=== PATIENT | female | born 1990 | race Caucasian/White ===

== ENCOUNTER → 2016-09-19 | Outpatient (CLI) | payer OTHER ==
[~2016-09-19] MED LIST: PRENTAB26 PO
[2016-09-19 12:03] LABS: URINE APPEARANCE CLEAR (CLEAR); URINE BILIRUBIN NEG (NEG); URINE COLOR YELLOW; URINE NITRITE NEG (NEG); URINE PH 6.5 (4.5-7.5); URINE SPECIFIC GRAVITY 1.012 (1.000-1.030); UROBILINOGEN NEG (NEG)
[2016-09-19 12:28] LABS: MANUAL MICROSCOPIC REQUIRED? NO; REVIEW REQ? NO
== END | disposition home or self-care (01) ==
LOC: C.LABSPEC 11:28
PROVIDERS: ATTEND Obstetrics & Gynecology
DX: Z34.00 Encounter for supervision of normal first pregnancy, unspecified trimester (principal)

== ENCOUNTER → 2016-09-26 | Outpatient (CLI) | payer OTHER ==
[2016-09-26 11:43] LABS: BASO % 0.6 %; BASO ABS # 0.04 K/uL (0-0.2); COMPLETE YES; EOS % 2.4 %; HEMATOCRIT 38.8 % (37-47); IG% 0.1 %; LYMPH % 27.6 %; LYMPH ABS # 1.96 K/uL (1.2-3.4); MEAN CORPUSCULAR HEMOGLOBIN 31.1 pg (25-34); MEAN CORPUSCULAR HGB CONC 35.3 g/dl (32-36); MEAN PLATELET VOLUME 9.4 fL (7.4-10.4); MONO % 10.3 %; PLATELET COUNT 299 K/uL (130-400); RED BLOOD COUNT 4.41 M/uL (4.2-5.4); WHITE BLOOD COUNT 7.11 K/uL (4.8-10.8)
[2016-09-28 21:57] LABS: CHLAMYDIA TRACH RNA*** NOT DETECTED (NOT DETECTED); GC (NEIS GONORRHOEAE)RNA** NOT DETECTED (NOT DETECTED)
== END | disposition home or self-care (01) ==
LOC: C.LAB1850 10:34
PROVIDERS: ATTEND Obstetrics & Gynecology
DX: Z34.01 Encounter for supervision of normal first pregnancy, first trimester (principal)

== ENCOUNTER → 2016-11-08 | Outpatient (CLI) | payer OTHER ==
[2016-11-08 12:14] LABS: GTGD 50 Grams
== END | disposition home or self-care (01) ==
LOC: C.LAB1850 09:03
PROVIDERS: ATTEND Obstetrics & Gynecology
DX: Z34.00 Encounter for supervision of normal first pregnancy, unspecified trimester (principal)

== ENCOUNTER → 2016-12-14 | Outpatient (CLI) | payer OTHER ==
[2016-12-14 17:41] LABS: URINE APPEARANCE CLEAR (CLEAR); URINE BILIRUBIN NEG (NEG); URINE COLOR YELLOW; URINE EPITHELIAL CELL AUTO >30 /lpf (0-5); URINE NITRITE NEG (NEG); URINE PH 5.5 (4.5-7.5); URINE SPECIFIC GRAVITY 1.018 (1.000-1.030); UROBILINOGEN NEG (NEG)
[2016-12-14 17:48] LABS: MANUAL MICROSCOPIC REQUIRED? NO; REVIEW REQ? NO
== END | disposition home or self-care (01) ==
LOC: C.LAB1850 16:47
PROVIDERS: ATTEND Obstetrics & Gynecology
DX: R39.9 Unspecified symptoms and signs involving the genitourinary system (principal)

== ENCOUNTER → 2017-01-31 | Outpatient (CLI) | payer OTHER ==
[2017-01-31 12:34] LABS: HEMATOCRIT 33.1 % (37-47)
[2017-01-31 13:13] LABS: GTGD 50 Grams
[2017-01-31 14:27] LABS: URINE APPEARANCE CLEAR (CLEAR); URINE BILIRUBIN NEG (NEG); URINE COLOR DK YELLOW; URINE EPITHELIAL CELL AUTO >30 /lpf (0-5); URINE NITRITE NEG (NEG); URINE SPECIFIC GRAVITY 1.023 (1.000-1.030); UROBILINOGEN NEG (NEG)
[2017-01-31 14:31] LABS: MANUAL MICROSCOPIC REQUIRED? NO; REVIEW REQ? NO
== END | disposition home or self-care (01) ==
LOC: C.LAB1850 10:01
PROVIDERS: ATTEND Obstetrics & Gynecology
DX: Z34.02 Encounter for supervision of normal first pregnancy, second trimester (principal)

== ENCOUNTER → 2017-03-22 | Outpatient (CLI) | payer OTHER | END | disposition home or self-care (01) | LOC: C.LABSPEC 17:50 | PROVIDERS: ATTEND Obstetrics & Gynecology | DX: Z34.02 Encounter for supervision of normal first pregnancy, second trimester (principal) ==

== ENCOUNTER 2017-04-06 22:47 | Inpatient (IN) | payer OTHER ==
[~2017-04-06] VITALS: Ht 180.3 cm; Wt 70.0 kg
[2017-04-06] MEDS ORDERED: LACTATED RINGER'S 1000ML 1,000 ML IV PRN (23:08)
[2017-04-06] MEDS ORDERED: LACTATED RINGER'S 1000ML 1,000 ML IV SCH (23:08)
[2017-04-06 23:37] LABS: HEMATOCRIT 35.5 % (37-47); MEAN CORPUSCULAR HEMOGLOBIN 31.8 pg (25-34); MEAN PLATELET VOLUME 9.7 fL (7.4-10.4); PLATELET COUNT 282 K/uL (130-400); WHITE BLOOD COUNT 13.79 K/uL (4.8-10.8)
[2017-04-06] MEDS ORDERED: BUPIVACAINE 0.25% 30 ML VIAL ONE (23:43)
[2017-04-06] MEDS ORDERED: EpHEDrine SULFATE INJ 50 MG/ML AMP ONE (23:43)
[2017-04-06] MEDS ORDERED: FENTANYL CITRATE INJ 50 MCG/1 ML 2 ML VIAL ONE (23:44)
[2017-04-06] MEDS ORDERED: FENTANYL 2MCG/ML ROPIV 1.25MG/ML 100ML BAG EPI ONE (23:44)
[2017-04-07 00:09] LABS: MEAN CORPUSCULAR HGB CONC 34.9 g/dl (32-36)
[2017-04-07] MEDS ORDERED: NALOXONE HCL INJ 1 MG in SODIUM CHLORIDE 0.9% 1000ML 1,000 ML IV PRN (00:22)
[2017-04-07] MEDS ORDERED: LACTATED RINGER'S 1000ML 500 ML IV PRN (00:22)
[2017-04-07] MEDS ORDERED: NALBUPHINE HCL INJ 10 MG/ML AMP IV PRN (00:30)
[2017-04-07] MEDS ORDERED: FENTANYL 2MCG/ML ROPIV 1.25MG/ML 100ML BAG EPI PRN (00:30)
[2017-04-07] MEDS ORDERED: DiphenhydrAMINE HCL 50 MG/ML VIAL IV PRN (00:30)
[2017-04-07] MEDS ORDERED: EpHEDrine SULFATE INJ 50 MG/ML AMP IV PRN (00:30)
[2017-04-07] MEDS ORDERED: NALOXONE HCL INJ 0.4 MG/1 ML VIAL/CARP IV PRN (00:30)
[2017-04-07 00:56] VITALS: Ht 180.3 cm; Wt 70.0 kg
[2017-04-07] MEDS ORDERED: PRENTAB26 PO (01:08)
[2017-04-07] MEDS ORDERED: OXYTOCIN 30 UNITS/500ML NSS IV ONE (03:08)
[2017-04-07] MEDS ORDERED: METHYLERGONOVINE MALEATE 0.2 MG/ML AMP ONE (06:25)
[2017-04-07] MEDS ORDERED: LACTATED RINGER'S 1000ML 1,000 ML IV SCH (06:55)
[2017-04-07] MEDS ORDERED: HYDROCORTISONE ACETATE 25 MG SUPP PR PRN (07:00)
[2017-04-07] MEDS ORDERED: OXYTOCIN 30 UNITS/500ML NSS IV PRN (07:00)
[2017-04-07] MEDS ORDERED: DIPHTHERIA/TETANUS/PERTUSSIS 0.5 ML SYR/VIAL IM. ONE (07:00)
[2017-04-07] MEDS ORDERED: MISOPROSTOL 200 MCG TAB PR SCH (07:00)
[2017-04-07] MEDS ORDERED: SUPERCREAM 0.870 % 15GM JAR EXT PRN (07:00)
[2017-04-07] MEDS ORDERED: ACETAMINOPHEN 325 MG TAB PO PRN (07:00)
[2017-04-07] MEDS ORDERED: BENZOCAINE 20% AER SPR 82.5 GM CAN EXT PRN (07:00)
[2017-04-07] MEDS ORDERED: OXYCODONE/ACETAMINOPHEN 5-325 TAB PO PRN (07:00)
[2017-04-07] MEDS ORDERED: LANOLIN OINT EXT PRN ×2 (07:00)
--- NOTE | 2017-04-07 07:06 | Anesthesia Procedure Note ---
Anesthesia Epidural Removal Nt Date & Time Apr 07, 2017 at 07:05 Vital Signs Pain Intensity: 0.0 Notes Mental Status: alert / awake / arousable, participated in evaluation Nausea / Vomiting: adequately controlled Pain: adequately controlled Airway Patency, RR, SpO2: stable & adequate BP & HR: stable & adequate Hydration State: stable & adequate Neuraxial Anesthesia: was administered Anesthetic Complications: no major complications apparent, pt satisfied with anesthetic care Epidural: removed without complications, with tip intact
--- NOTE | 2017-04-07 07:51 | DELIVERY SUMMARY ---
DATE OF OPERATION: 04/07/2017 COURSE OF CARE: Alfreda is a 26-year-old who was admitted at 38 and 1. She labored normally and I was called to the room at the time that she was reaching [facility]. She was prepped for delivery. Through the next several pushes she was coached and pushed well. She delivered the head of her infant in the LUIS CARLOS position with significant molding. The infant restituted such that the left shoulder was anterior. This delivered with no difficulty followed by the right shoulder and the remainder of the . Vigorous male was placed on the maternal abdomen where the cord was doubly clamped and cut by the father of the baby. The placenta delivered spontaneously and was noted to be intact with a 3-vessel cord. Of note after delivery of the placenta lochia was free flowing and rather heavy. IV Pitocin was started and bimanual massage was unable to sufficiently stem the flow. Therefore 800 mcg of Cytotec were administered rectally, continued bimanual massage. Digital exploration of the lower uterine segment revealed a clot which was able to be swept out and discarded and shortly thereafter the bleeding rapidly improved. The fundus remained firm and lochia became minimal. Of note, while the nurse was attending to the infant and the infant was lifted upwards off the maternal abdomen in order to allow cleaning and rewrapping in a new blanket it was noted that the Diane clamp on the infant's umbilical stump had spontaneously opened and some point and was lying on the maternal abdomen no longer effectively applied to the cord. The cord stump was noted to be freely bleeding and blood did splash upwards onto the father and mother of the infant as well as onto the pillow and the sheets and the patient's gown. A cord clamp was quickly replaced as soon as this was recognized. Infant EBL is estimated at 50-100 cc maximum and an incident report regarding the loose clamp has been filed. At the completion of delivery the fundus is firm, lochia is minimal. The infant remains vigorous and mother and infant are both in good condition at the present time having tolerated delivery well. I attest to the content of the Intraoperative Record and any orders documented therein. Any exception s are noted below.
[2017-04-07] MEDS: FERROUS SULFATE 325 MG TAB PO SCH (08:00)
[2017-04-07] MEDS: DOCUSATE SODIUM 100 MG CAP PO SCH ×2 (08:00→20:47)
[2017-04-07] MEDS: PRENATAL VITAMIN TAB PO SCH (08:00)
--- NOTE | 2017-04-07 08:57 | Discharge Instructions ---
Discharge Instructions Date of Service Apr 07, 2017. Admission Reason for Admission: Normal Labor Discharge Discharge Diagnosis / Problem: after delivery Discharge Goals Goal(s): Routine recovery after delivery Medications Continue Dispensed Medications: supercream, dermaplast, tucks, lansinoh Activity Recommendations Activity Limitations: per Instructions/Follow-up section . Instructions / Follow-Up Instructions / Follow-Up ACTIVITY RECOMMENDATIONS: * Gradual return to full activity over the next 2-3 weeks. * No lifting - nothing heavier than baby over the next 2-3 weeks. * Do not engage in vigorous exercise, sexual activity or sports until cleared by your physician. * Do not drive or operate any motorized equipment until cleared by your physician. * You may shower/bathe daily. MEDICATIONS: For discomfort or pain, you may use Acetaminophen (Tylenol), Ibuprofen (Advil), or Naproxen (Aleve) following the package directions. For constipation you may use Colace following the package directions. BREAST CARE: If you are not breast feeding: * Wear a supportive bra 24 hours a day for one to two weeks. * Avoid stimulating your breasts and nipples as much as possible during the first few weeks after delivery. * When taking a shower, have the warm water hit your back, not breasts. * When your breasts feel full, apply ice packs. Usually three to four times a day helps ease the discomfort. * Take a mild pain medication (Tylenol / Motrin) when you are uncomfortable. If breast feeding: * Use breast milk to lubricate nipples. Lansinoh cream may be used for sore nipples. You do not need to remove cream prior to breast feeding. If using a different brand of cream, check the label for directions regarding removal of cream prior to nursing. * Wear a supportive bra. * If having problems with breasts or breast feeding, call a senior safety management consultant or your health care provider. EPISIOTOMY CARE: After delivery, if you have an episiotomy (stitches), the following steps will ease discomfort and aid healing. * For the first 24 hours after delivery, place ice packs next to your episiotomy to help reduce swelling. * After the first 24 hour-period, sitz baths, either portable or in the tub, are suggested. A shower with a shower arm sprayed over the episiotomy may be comforting. * Shani care should be done after each voiding and bowel movement. Squirt warm water from a plastic bottle over the perineum (region of the body between the anus and urinary opening) and pat dry. * Use Dermoplast to ease discomfort. Shake container. [place] directly over the episiotomy. Place a Tucks on a clean sanitary pad next to your episiotomy. SPECIAL CARE INSTRUCTIONS: When you are discharged from the hospital, it is important for you to follow the instructions listed below: * During the first week at home, you should be able to care for yourself and your baby. In addition, the usual light household activities are encouraged. * Limit your activities to the way you feel. Do not try to clean the house or move furniture. Be sensible. * If you actively engage in sports and have done so up until the time of your delivery, you may resume these activities as soon as you feel able. This may take up to one month or even longer. Use good judgment. * Continue to take your vitamins for at least six weeks after the of your baby. * Your diet need not be limited unless you were on a special diet before your delivery. Breast-feeding mothers need around 2500 calories per day and at least 64-80 ounces of fluid per day (8 to 10 glasses). * You should eat foods from the four major food groups. Crash diets or fad diets are to be avoided. Eating lean meats, fresh fruits and vegetables, low-fat dairy products, high fiber foods and a regular exercise program, will help you get back to your pre- weight without putting your health at risk. * Constipation is sometimes a problem after delivery. Take a mild laxative as needed. If breast feeding, Milk of Magnesia is acceptable to use. You may use a suppository or Fleets enema if no episiotomy. * A daily shower or tub bath is suggested. Be sure to thoroughly and gently dry the perineum. * A bloody vaginal discharge will usually continue until around four weeks post . A small amount of bleeding may continue for as long as six weeks. Vaginal discharge changes from the bright red bleeding after delivery to pink then brownish and finally yellowish-pink before becoming white and disappearing. * Bleeding may increase with activity. Your first period may come in 4-8 weeks. If you are breast feeding, your period may be delayed even longer. * Robinette (sex) can begin whenever both you and your partner feel comfortable and do not have any form of genital infection. It is recommended that you wait at least six weeks for internal and external healing to occur. If you have questions, please talk to your health care practitioner. A condom should be used to prevent infection and . * Foreplay, gentle intercourse and lubrication is very important the first several times to prevent pain. A water-based lubricant such as K-Y jelly or Astroglide may be used. * If you have RH negative blood and your baby is RH positive, you will receive RHOGAM by injection prior to discharge. The nurse will give you a card to keep with you that has the date and place that you received RHOGAM after delivery. * During your care, you had a Rubella screen done to check for the presence of rubella antibodies in your blood. If your test was negative, you will receive a Rubella vaccine prior to discharge. This vaccine may cause a fever, soreness at the injection site and flu-like symptoms. If these symptoms persist, notify your health care practitioner. is not advised for one month after a Rubella vaccine. * Verbalizes understanding of car seat law as reviewed with patient nursing. * Car Seat hand-out given and reviewed with patient by nursing. * Shaken baby information reviewed with patient by nursing. Call you doctor if: * Heavy bleeding (saturating several pads an hour) or passing clots the size of your fist. * A fever >101 degrees F (38.3 degrees C) on two occasions four hours apart and /or chills. * Unusual pain in the pelvic or vaginal areas. * "Baby Blues" lasting longer than two weeks. If you have any questions or concerns, call your health care practitioner at . FOLLOW UP VISIT: * Please call the office at to schedule a 6 week examination. It is important you keep this appointment. It is important for you to make arrangements for either yearly or twice yearly check-ups thereafter. Current Hospital Diet Patient's current hospital diet: Regular OB Diet Discharge Diet Recommended Diet: Regular Diet Pending Studies Studies pending at discharge: no Medical Emergencies . Who to Call and When: Medical Emergencies: If at any time you feel your situation is an emergency, please call 911 immediately. . Non-Emergent Contact Non-Emergency issues call your: Aesthetics Instructor . . "Provider Documentation" section prepared by Ernst Lin. . VTE Core Measure Inpt VTE Proph given/why not?: Treatment not indicated
[2017-04-07] MEDS ORDERED: COUGH DROP (SUGAR FREE) LOZ 24 LOZ/1 BOX ONE (09:21)
[2017-04-07] MEDS: IBUPROFEN 600 MG TAB PO PRN ×3 (09:25→20:48)
[2017-04-07 10:30] VITALS: BP 99/69; PULSE 98; TEMP 37.1
[2017-04-07] MEDS ORDERED: MISOPROSTOL 200 MCG TAB ONE (11:38)
[2017-04-07 12:15] VITALS: BP 119/86; PULSE 109; TEMP 36.5
[2017-04-07 15:30] VITALS: BP 98/68; PULSE 84; TEMP 36.7
[2017-04-07 19:30] VITALS: BP 102/77; PULSE 98; TEMP 36.7
[2017-04-08 01:05] VITALS: BP 99/73; PULSE 84; TEMP 36.6
[2017-04-08] MEDS: IBUPROFEN 600 MG TAB PO PRN ×3 (01:26→18:26)
[2017-04-08 04:10] VITALS: BP 103/69; PULSE 80; TEMP 36.6
[2017-04-08 06:51] LABS: HEMATOCRIT 28.2 % (37-47)
--- NOTE | 2017-04-08 07:26 | Progress Note ---
Subjective Apr 08, 2017. Subjective conversation w/ patient, physical exam Ambulation: ambulating normally Diet Tolerance: Regular Diet Feeding Type: Breast Feeding Objective Vital Signs Date Time Temp Pulse Resp B/P (MAP) Pulse Ox O2 Delivery O2 Flow Rate FiO2 04/08/17 04:10 36.6 80 16 103/69 (80) Room Air 04/08/17 01:05 Room Air 04/08/17 01:05 36.6 84 16 99/73 (82) Room Air 04/07/17 19:30 36.7 98 16 102/77 (85) Room Air 04/07/17 15:30 Room Air 04/07/17 15:30 36.7 84 16 98/68 (78) Room Air 04/07/17 12:15 36.5 109 20 119/86 (97) Room Air 04/07/17 10:30 37.1 98 18 99/69 (79) Room Air 04/07/17 10:30 Room Air Physical Exam General Appearance: WELL-APPEARING, NO APPARENT DISTRESS Fundus: Firm, Non-Tender Extremities: no calf tenderness Laboratory Results Last 24 Hours Test 04/08/17 06:34 Hemoglobin 9.6 g/dL Hematocrit 28.2 % Assessment and Plan Post- Day#: 1 Continue Routine Care: - routine care - doing well
[2017-04-08] MEDS: PRENATAL VITAMIN TAB PO SCH (09:18)
[2017-04-08] MEDS: DOCUSATE SODIUM 100 MG CAP PO SCH ×2 (09:18→19:42)
[2017-04-08] MEDS: FERROUS SULFATE 325 MG TAB PO SCH (09:18)
[2017-04-08 09:31] VITALS: BP 97/68; PULSE 80; TEMP 37; O2SAT 96
[2017-04-08 15:30] VITALS: BP 109/79; PULSE 96; TEMP 37.1
[2017-04-09] VITALS: BP 101/69; PULSE 82; TEMP 36.7; O2SAT 100
[2017-04-09] MEDS: IBUPROFEN 600 MG TAB PO PRN (06:19)
--- NOTE | 2017-04-09 07:14 | Progress Note ---
Subjective Apr 09, 2017. Subjective conversation w/ patient, physical exam, lab review Ambulation: ambulating normally Voiding: no voiding problems Passing Gas: Yes Diet Tolerance: Regular Diet Lochia: Small Feeding Type: Breast Feeding Pain: controlled Objective Vital Signs Date Time Temp Pulse Resp B/P (MAP) Pulse Ox O2 Delivery O2 Flow Rate FiO2 04/09/17 00:00 36.7 82 18 101/69 (80) 100 Room Air 04/09/17 00:00 Room Air 04/08/17 15:30 Room Air 04/08/17 15:30 37.1 96 20 109/79 (89) Room Air 04/08/17 09:31 37.0 80 16 97/68 (78) 96 Room Air 04/08/17 08:00 Room Air Physical Exam General Appearance: WELL-APPEARING, WD/WN, NO APPARENT DISTRESS Abdomen: non tender, soft Fundus: Firm, Non-Tender, Relation to Umbilicus (at u) Extremities: non-tender, normal inspection, no pedal edema Assessment and Plan Post- Day#: 2 Continue Routine Care: Doing well. Plan d/c. Instructions given.
[2017-04-09 07:20] VITALS: BP 100/75; PULSE 83; TEMP 37; O2SAT 98
[2017-04-09] MEDS: DOCUSATE SODIUM 100 MG CAP PO SCH (07:52)
[2017-04-09] MEDS: FERROUS SULFATE 325 MG TAB PO SCH (07:52)
[2017-04-09] MEDS: PRENATAL VITAMIN TAB PO SCH (07:52)
[2017-04-09 11:10] VITALS: BP_DIAS 75; PULSE 83; TEMP 37
== END 2017-04-09 11:25 | disposition home or self-care (01) | DRG 775 ==
LOC: C.OPB 22:47 → C.LD 22:47 → C.OPB 23:10 → C.OBG 04-07 10:10
PROVIDERS: ADMIT Obstetrics & Gynecology; ATTEND Obstetrics & Gynecology
PROC: 10E0XZZ Delivery of Products of Conception, External Approach (ICD-10-PCS; principal; 2017-04-07)
DX: O76 Abnormality in fetal heart rate and rhythm complicating labor and delivery (principal); Z3A.38 38 weeks gestation of pregnancy; Z37.0 Single live birth

== ENCOUNTER → 2017-05-02 | Outpatient (CLI) | payer OTHER ==
[2017-05-02 14:48] LABS: HEMATOCRIT 37.3 % (37-47); MEAN CELL VOLUME 90.8 fL (80-100); MEAN CORPUSCULAR HEMOGLOBIN 29.7 pg (25-34); MEAN CORPUSCULAR HGB CONC 32.7 g/dl (32-36); MEAN PLATELET VOLUME 9.5 fL (7.4-10.4); PLATELET COUNT 338 K/uL (130-400); RED BLOOD COUNT 4.11 M/uL (4.2-5.4); WHITE BLOOD COUNT 7.22 K/uL (4.8-10.8)
== END | disposition home or self-care (01) ==
LOC: C.LAB1850 13:26
PROVIDERS: ATTEND Internal Medicine
DX: D64.9 Anemia, unspecified (principal)

== ENCOUNTER → 2017-06-21 | Outpatient (CLI) | payer OTHER ==
[2017-06-27 15:31] LABS: HERPES SIMPLEX CULT SOURCE GENITAL-VULVA; HERPES SIMPLEX VIRUS CULT NOT ISOLATED (NOT ISOLATED)
== END | disposition home or self-care (01) ==
LOC: C.LABSPEC 13:45
PROVIDERS: ATTEND Physician Assistant
DX: N94.10 Unspecified dyspareunia (principal); N94.9 Unspecified condition associated with female genital organs and menstrual cycle

== ENCOUNTER → 2017-10-09 | Outpatient (CLI) | payer OTHER ==
[2017-10-09 11:57] LABS: HEMATOCRIT 40.2 % (37-47); HEMOGLOBIN 13.4 g/dL (12.0-16.0); MEAN CELL VOLUME 87.8 fL (80-100); MEAN CORPUSCULAR HEMOGLOBIN 29.3 pg (25-34); MEAN CORPUSCULAR HGB CONC 33.3 g/dl (32-36); MEAN PLATELET VOLUME 9.7 fL (7.4-10.4); PLATELET COUNT 334 K/uL (130-400); RED CELL DISTRIBUTION WIDTH CV 12.9 % (11.5-14.5); RED CELL DISTRIBUTION WIDTH SD 41.2 fL (36.4-46.3); WHITE BLOOD COUNT 5.48 K/uL (4.8-10.8)
== END | disposition home or self-care (01) ==
LOC: C.LAB1850 10:47
PROVIDERS: ATTEND Physician Assistant
DX: N92.6 Irregular menstruation, unspecified (principal)

== ENCOUNTER 2025-04-23 08:35 | Inpatient (IN) ==
[2025-04-23] MEDS: OXYTOCIN 30 UNITS/NSS 30 UNITS/500 ML BAG IV PRN (09:25)
[2025-04-23] MEDS ORDERED: METHYLERGONOVINE MALEATE 0.2 MG/ML AMP IM PRN (09:36)
[2025-04-23] MEDS ORDERED: ACETAMINOPHEN 325 MG TAB PO PRN (09:42)
[2025-04-23] MEDS ORDERED: HYDROCORTISONE ACETATE 25 MG SUPP PR PRN (09:42)
[2025-04-23] MEDS ORDERED: OXYTOCIN 30 UNITS/NSS 30 UNITS/500 ML BAG IV PRN (09:42)
--- NOTE | 2025-04-23 09:46 | History & Physical Report ---
Date of Service April 23, 2025 Assessment & Plan (1) Encounter for induction of labor: Plan Admit pt; iv, labs, add pitocin as needed; FHR category I Admission and Anticipated Discharge Date Admission Date: April 23, 2025 History of Present Illness Primary Care Provider: Terrie Baker MD Contractions: Positive Painful: Positive Leaky Fluid: Negative Movement: Present Labs: Rhesus Positive, GBS Negative, Rubella Negative Hx of STDs: Negative Allergies Allergy/AdvReac Type Severity Reaction Status Date / Time cefaclor Allergy Severe RASH Verified 04/16/25 10:06 tramadol Allergy Intermediate DELIRIUM Verified 04/16/25 10:06 trazodone Allergy Intermediate DELIRIUM Verified 04/16/25 10:06 nickel Allergy Mild red, itchy Verified 04/16/25 10:06 with cheap earrings Home Medications Medication Instructions Recorded Confirmed Type azelastine 137 mcg (0.1 %) nasal 2 spray intranasal BID PRN nasal 03/28/24 04/16/25 Rx spray congestion #30 mL fluticasone propionate 50 2 spray intranasal DAILY #16 grams 03/28/24 04/16/25 Rx mcg/actuation nasal spray,suspension ipratropium bromide 21 mcg (0.03 2 spray intranasal TID PRN 03/28/24 04/16/25 Rx %) nasal spray postnasal drip #30 mL sertraline 50 mg tablet 100 mg PO DAILY 03/28/24 04/16/25 History PNV [id number] PO 10/09/24 04/16/25 History [ Gummies] ferrous sulfate 325 mg (65 mg 325 mg PO DAILY 03/04/25 04/16/25 History iron) tablet (Feosol) Patient History Medical History (Updated 04/23/25 @ 10:06 by Leida Doshi RN) Varicella vaccination Anxiety Acne Chronic rhinitis Oral allergy syndrome Food allergy fresh peaches, apples, pitted fruit Classic migraine with aura Anxiety associated with depression Adrenal nodule Under surveillance by endo, non-functioning adrenal incidentaloma- plan for repeat CT 1 year Thyroid nodule Complex ovarian cyst Incomplete August 2023 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 Ruptured lumbar disc Migraine Surgical History History of colonoscopy History of esophagogastroduodenoscopy (EGD) History of wisdom tooth extraction History of placement of ear tubes Status post epidural steroid injection hip and spine History of tonsillectomy Family History Grandmother Diabetes Transplanted liver Mother Michelle thyroiditis, fibrous variant Drug abuse Anxiety Depression Thyroid disease History of PCOS Grandfather Alcohol abuse Hypertension Grandfather Drug abuse Alcohol abuse Father Drug abuse Alcohol abuse Anxiety Unknown Leukemia Sister Drug abuse Aunt Drug abuse Grandfather (Maternal) Myocardial infarction Grandfather (Paternal) Myocardial infarction Other No family history of adverse response to anesthesia Denies family history of Ovarian cancer Prostate cancer Breast cancer Colorectal cancer Uterine cancer Social History (Updated 10/09/24 @ 13:10 by Josselyn Ragland) Smoking Status: Former smoker Second Hand Exposure: No; Do You Dip or Chew Tobacco: No; Hx Alcohol Use: Yes Hx Substance Use: Yes (medical marijuana card (for anxiety/back)) Last Used Substance: Days (ago) Preferred Language: Romansh Communication Ability: Effective Visual Impairment: No Limitations Hearing Ability: Normal Locomotive Pipe Fitter Required: No Beliefs That Will Affect Care: None marital status: Single marital status details: bg Cantu (34) [phone] Current Living Situation: Family and Significant Other Current Living Situation Comment: Lives with Fob and child, cats-fob changing litter current occupational status: employed current occupation: [employer] Feels Safe at Home: Yes Childhood Exposure to Second-Hand Smoke: Yes Dental Care, Regularly: Yes Physical Activity Frequency: 1-2 Times per Week Seatbelt Use: always Sunscreen Use: Yes Assistive Devices: None OB History SOCIAL SERVICE COORDINATOR History No STDs Review of Systems All systems reviewed & are unremarkable except as noted in HPI & below i. Denies fever, chills, sweats ii. Denies SOB, difficulty breathing, chest pain, palpitations, chest pressure iii. Denies breast pain. iv. Denies Dysuria v. Denies headache or changes in vision. Physical Exam Constitutional: WD/WN, vitals as above Respiratory: normal respiratory effort, lungs clear to auscultation Cardiovascular: RRR, no murmur, no edema Gastrointestinal (Abdomen): normal bowel sounds, soft, nontender, no hepatosplenomegaly Skin: no rashes, warm and dry Psychiatric: A+Ox3, euthymic affect Genitourinary: OB Exam Abdomen: + vertex and + regular contractions ([id number]) Manual OB Exam: + cervical dilation (fully dilated with bulging membranes) and + station + 1 OB Exam Monitor Tracing: + external FHT monitor used, + external uterine monitor used, + category II, + normal FHT variability and + variable decelerations (resolved with maternal re-positioning) Results & Data Vital Signs (Past 12 Hours) Vital Signs Pulse BP 04/23/25 09:41 106 H 129/73 Laboratory Results OB Labs: Blood Type O Positive 10/15/24 Antibody Screen NEGATIVE 10/15/24 Hgb 13.6 g/dl (12.0-16.0) 10/15/24 Hct 39.8 % (37.0-47.0) 10/15/24 MCV 90.5 fL (80.0-100.0) 10/15/24 Plt Count 319 K/uL (130-400) 10/15/24 Rubella IgG Antibody Immune (Immune) 10/15/24 Treponema pallidum Ab Negative (Negative) 10/15/24 Hep Bs Antigen Negative (Negative) 10/15/24 Hepatitis C Antibody Negative (Negative) 10/15/24 HIV 1&2 Ab/P24 Ag 4thGn Negative (Negative) 10/15/24 Glucose 1 Hr 50 gm 116 mg/dl (70-130) 11/26/24 Maternal Serum AFP 45.5 ng/mL 11/26/24 OB Optional Labs: Chlamydia trachomatis RNA Not Detected (NotDetected) 10/15/24 Neisseria gonorrhoeae RNA Not Detected (NotDetected) 10/15/24 Thyroid Stimulating Hormone (TSH) 0.06 uIU/mL L 11/08/24 Alpha Fetoprotein Triple Screen SEE NOTE 11/26/24 Code Status & VTE Plan VTE Prophylaxis Plan VTE Prophylaxis will be ordered: No Supervising Physician Co-Signing Physician Notes Resident Physician Supervision Note: I interviewed and examined the patient. Discussed with Dr. Rasmussen and agree with findings and plan as documented in the note. Any exceptions or clarifications are listed here: [None] Documented By: Jessi Mccarthy MD, FACOG Resident Activity Tracking Resident Involvement: Resident Care Provided Care Provided: OB Delivery
--- NOTE | 2025-04-23 10:05 | Delivery Summary ---
Vaginal Delivery Summary Date of Service April 23, 2025 Vaginal Delivery Summary and 1st Degree LAC Patient is a 2 para 1-0-0-1 female EDC 05/12/2025 who presents at 37-2/7 weeks in active labor. Her contractions began at approximately 530 this morning with membranes intact. She arrived in labor and delivery and on exam was noted to be fully dilated with membranes intact but bulging. Membranes were ruptured for clear fluid. She pushed effectively over intact perineum for delivery of a viable female . Baby was in left occiput posterior position. The shoulders were delivered without maternal effort. The infant was vigorous crying& moving all 4 limbs and she was placed on mother's abdomen for further attention and drying. Cord was clamped and cut after 1 minute. After cord blood was obtained, the placenta was expressed intact with a three-vessel cord. bleeding was controlled with dilute Pitocin. A first-degree perineal laceration was repaired with 3-0 chromic in usual fashion. 1% lidocaine was used to anesthetize the area of repair. Mother and were in stable condition. QBL was 85 cc MNPG Vaginal Delivery Charge Delivery Type Details: and 1st Degree LAC
[2025-04-23] MEDS: IBUPROFEN 600 MG TAB PO PRN (10:46)
[2025-04-23] MEDS: LIDOCAINE 1% LOCAL 20 ML VIAL ONE (10:47)
[2025-04-23] MEDS: DIPHTHER/TETAN/PERTUS Vaccine (Tdap, Adol/Adult) 0.5mL IM ONE (10:48)
[2025-04-23] MEDS: ACETAMINOPHEN 325 MG TAB PO PRN (12:11)
[2025-04-23] MEDS: BENZOCAINE 20% SPRY 85 APPLN/85 GM CAN EXT PRN (12:12)
[2025-04-23] MEDS ORDERED: PENICILLIN GK 3 MU in DEXTROSE 5% 100 ML IV PRN (12:36)
[2025-04-23] MEDS: DOCUSATE SODIUM 100 MG CAP PO SCH (20:42)
--- NOTE | 2025-04-24 05:46 | Obstetrical Progress Note ---
Date of Service <Mireya Rasmussen MD - Last Filed: 04/24/25 07:47> April 24, 2025 Assessment & Plan <Mireya Rasmussen MD - Last Filed: 04/24/25 07:47> (1) care following vaginal delivery: Plan -Continue stable and routine care. Breast feeding. Rhesus Positive. Rubella Immune. Monitor. <Krystyna Quesada MD - Last Filed: 04/24/25 07:51> (1) care following vaginal delivery: Subjective <Mireya Rasmussen MD - Last Filed: 04/24/25 07:47> Ambulation: ambulating normally Voiding: no voiding problems Passing Gas:: Yes Diet Tolerance:: regular diet Lochia:: Small Feeding Type:: breast feeding Current Pain Level(1-10): 2 PPD 1 Review of Systems All systems reviewed & are unremarkable except as noted in HPI & below i. Denies fever, chills, sweats ii. Denies SOB, difficulty breathing, chest pain, palpitations, chest pressure iii. Denies breast pain. iv. Denies Dysuria v. Denies headache or changes in vision. Physical Exam <Mireya Rasmussen MD - Last Filed: 04/24/25 07:47> Constitutional WD/WN, vitals as above Respiratory normal respiratory effort, lungs clear to auscultation Cardiovascular RRR, no murmur, no edema Gastrointestinal (Abdomen) normal bowel sounds, soft, nontender, no hepatosplenomegaly On palpation of abdomen, fundus is at the level of the umbilicus. uterus is firm and has begun involution, at approximately 1cm/day. Skin no rashes, warm and dry Psychiatric A+Ox3, euthymic affect Results & Data <Mireya Rasmussen MD - Last Filed: 04/24/25 07:47> Vital Signs (Past 12 Hours) Vital Signs Temp Pulse Resp BP Pulse Ox O2 Del Method 04/24/25 04:00 36.7 C 78 16 115/72 98 Room Air 04/23/25 23:45 36.8 C 84 16 123/74 98 Room Air 04/23/25 19:30 36.8 C 84 16 123/79 98 Room Air Supervising Physician <Krystyna Quesada MD - Last Filed: 04/24/25 07:51> Co-Signing Physician Notes Resident Physician Supervision Note: I interviewed and examined the patient. Discussed with Dr. Rasmussen and agree with findings and plan as documented in the note. Any exceptions or clarifications are listed here: Documented By: Krystyna Quesada MD, FACOG
[2025-04-24 06:32] LABS: Hematocrit (blood only) 34.8 % (37.0-47.0); Hemoglobin 11.7 g/dl (12.0-16.0); Mean Corpuscular Hemoglobin 30.6 pg (25.0-34.0); Mean Corpuscular Volume 91.1 fL (80.0-100.0); Platelet Count 284 K/uL (130-400); RDW Standard Deviation 41.2 fL (36.4-46.3); Red Blood Count 3.82 M/uL (4.20-5.40); White Blood Count 13.04 K/ul (4.8-10.8)
[2025-04-24] MEDS: PRENATAL VITAMIN 1 TAB PO SCH (08:41)
[2025-04-24 10:34] VITALS: BP 107/72; PULSE 80; RESP 18; TEMP 98.2; O2SAT 99
== END 2025-04-24 13:58 | disposition home or self-care (01) | DRG 768 ==
LOC: OPB 08:35 → 4S1 08:38 → 4E2 12:38

== ENCOUNTER 2025-05-28 05:15 | Inpatient (IN) ==
[2025-05-28] MEDS ORDERED: VANCOMYCIN CONSULT ACTIVE PRN ×2 (05:38→13:35)
[2025-05-28] MEDS: SODIUM CHLORIDE 0.9% 1,000 ML IV ONE ×2 (05:46→06:15)
--- NOTE | 2025-05-28 05:47 | Emergency Department Note ---
Impression & Plan Mastitis, Vomiting, Fever ED Provider Note CHIEF COMPLAINT: "Mastitis" HISTORY OF PRESENT ILLNESS: This 4-year-old female patient presents to the emergency department via private vehicle for "mastitis". The patient is 5 weeks status post spontaneous vaginal delivery. Her course was complicated by bilateral mastitis 5 days after delivery. The patient was treated successfully with a course of dicloxacillin as an outpatient. The patient states she has been doing well over the past 4 weeks, but overnight last night, she developed sudden onset of redness, warmth, significant pain, temperature of 100.3 F, and vomiting. The patient took 1000 mg acetaminophen and 800 mg ibuprofen, but continues to experience significant pain, chills, and generalized achiness with severe breast tenderness. Patient denies any purulent discharge. No abdominal pain. No chest pain or dyspnea. The patient is nursing and pumping. She states she has primarily been pumping due to the previous episode of mastitis, but did attempt a nursing session yesterday which she felt went well. She did see medical device sales consultant about a month ago. History provided by: Patient REVIEW OF SYSTEMS: A 10 system review of systems was performed with positives and pertinent negatives listed in the history of present illness. All other systems were reviewed and are negative. ALLERGIES: cefaclor, tramadol, trazodone PHYSICAL EXAM: VITALS: Vitals are noted on the nurse's note and reviewed by myself. GENERAL: This is a 34 year old female, in no acute distress, nondiaphoretic, well-developed well-nourished. SKIN: The skin was without rashes, erythema, edema, or bruising. There is no tenting of the skin. Capillary refill less than 2 seconds. HEAD: Normocephalic atraumatic. EYES: Conjunctivae without injection, sclerae without icterus. MOUTH: Mucous membranes moist. NECK: Supple without nuchal rigidity. No lymphadenopathy. Cervical spine is nontender. No JVD. BREAST: Bilateral breasts erythematous, tender, and warm. No obvious masses. No purulent discharge. HEART: Regular rate and rhythm without murmurs gallops or rubs. LUNGS: Clear to auscultation bilaterally without wheezes, rales or rhonchi. No retractions or accessory muscle use. ABDOMEN: Soft, nontender, without masses or organomegaly. No guarding or rebound tenderness. MUSCULOSKELETAL: No muscle atrophy, erythema, or edema noted. Full range of motion without joint tenderness in all extremities. No tenderness to palpation. Normal gait. Strength 5/5 throughout. NEURO: Patient was alert and oriented to person place and time. No focal neurological deficits. An order was placed for continuous telemetry registered nurse. The monitor showed a sinus tachycardia at a ventricular rate of 120 bpm, per my interpretation. EKG, per my interpretation shows sinus tachycardia with a ventricular rate of [address] elevation or depression. No T wave inversion. No prior EKG available for comparison. EMERGENCY DEPARTMENT COURSE: The patient was evaluated as above. Pt. presents to the ED via private vehicle for concerns of mastitis. Pt. developed sudden redness, swelling, painful bilateral breasts overnight. She had elevated temperature of 100.3F and vomiting. On arrival, the patient reports she had taken Tylenol and ibuprofen and is starting to feel somewhat improved, but continues to have breast pain and swelling. She is tachycardic. IV access obtained, labs drawn. Pt. hydrated with 2 Liters IV fluids (30mL/kg based on actual body weight) and medicated with Vancomycin and Zosyn. I did speak with Dr. Carty, [facility] regarding this patient. Based on history, she recommends outpatient management with PO Dicloxacillin (500mg QID) and consider admission/US/general surgery consultation if symptoms persist or worsen in 24-48 hours with return to ED at that time. Did suggest warm compresses and fever/pain control with ibuprofen and acetaminophen. Labs reviewed. Per my interpretation, Lactic acid elevated at 2.3. Leukocytosis of 14,000. No concerning anemia or thrombocytopenia. Coags unremarkable. Renal, hepatic function and electrolytes without significant abnormality. Procalcitonin and urinalysis are pending at the time of signout. On re-evaluation, patient notes some generalized improvement in her symptoms. She remains tachycardic with a heart rate of 105 bpm. The patient was signed out to Chad Ferrari PA-C pending repeat lactic acid testing and repeat clinical exam to determine final disposition. Please see his dictation regarding final disposition and plan of this patient. I attest that I have personally reviewed the patient medication list. I attest that I have reviewed the patient's blood pressure and it was found to be normal GCS: 15 In the evaluation and treatment of this patient the following differential diagnoses were entertained: mastitis, engorgement, sepsis, cellulitis, abscess, malignancy, among others The chart was completed utilizing [employer] Speech voice recognition software. Grammatical errors, random word insertions, pronoun errors, and incomplete sentences are an occasional consequence of this system due to software limitations, ambient noise, and hardware issues. Any formal questions or concerns about the content, text, or information contained within the body of this dictation should be directly addressed to the provider for clarification. Past Med/Surg History Problem List Fever (Acute) Vomiting (Acute) Mastitis (Acute) care following vaginal delivery Encounter for supervision of normal in multigravida Encounter for anatomic survey Early stage of Adrenal nodule Left January 14, 2021/CT scan with IV and oral contrast Low TSH level Medical History Encounter for induction of labor Varicella vaccination Anxiety Acne Chronic rhinitis Oral allergy syndrome Food allergy fresh peaches, apples, pitted fruit Classic migraine with aura Anxiety associated with depression Adrenal nodule Under surveillance by endo, non-functioning adrenal incidentaloma- plan for repeat CT 1 year Thyroid nodule Complex ovarian cyst Incomplete August 2023 [id number] condition Ruptured lumbar disc Migraine Surgical History History of colonoscopy History of esophagogastroduodenoscopy (EGD) History of wisdom tooth extraction History of placement of ear tubes Status post epidural steroid injection hip and spine History of tonsillectomy Family History Grandmother Diabetes Transplanted liver Mother Michelle thyroiditis, fibrous variant Drug abuse Anxiety Depression Thyroid disease History of PCOS Grandfather Alcohol abuse Hypertension Grandfather Drug abuse Alcohol abuse Father Drug abuse Alcohol abuse Anxiety Unknown Leukemia Sister Drug abuse Aunt Drug abuse Grandfather (Maternal) Myocardial infarction Grandfather (Paternal) Myocardial infarction Other No family history of adverse response to anesthesia Denies family history of Ovarian cancer Prostate cancer Breast cancer Colorectal cancer Uterine cancer Social History Smoking Status: Former smoker Second Hand Exposure: No; Do You Dip or Chew Tobacco: No; Hx Alcohol Use: No Hx Substance Use: No (medical marijuana card (for anxiety/back)) Preferred Language: Italian Communication Ability: Effective Visual Impairment: No Limitations Hearing Ability: Normal Knife Operator Required: No Beliefs That Will Affect Care: None marital status: Single marital status details: bg Cantu (34) [phone] Current Living Situation: Family and Significant Other Current Living Situation Comment: Lives with Fob and child, cats-fob changing litter current occupational status: employed current occupation: [employer] Feels Safe at Home: Yes Childhood Exposure to Second-Hand Smoke: Yes Dental Care, Regularly: Yes Physical Activity Frequency: 1-2 Times per Week Seatbelt Use: always Sunscreen Use: Yes Assistive Devices: None Allergies Allergies Allergy/AdvReac Type Severity Reaction Status Date / Time cefaclor Allergy Severe RASH Verified 04/28/25 14:46 tramadol Allergy Intermediate DELIRIUM Verified 04/28/25 14:46 trazodone Allergy Intermediate DELIRIUM Verified 04/28/25 14:46 nickel Allergy Mild red, itchy Verified 04/28/25 14:46 with cheap earrings apple Allergy Swelling Verified 04/28/25 14:46 of Lip/Tongue/Throat thompson Allergy Swelling Verified 04/28/25 14:46 of Lip/Tongue/Throat peach Allergy Swelling Verified 04/28/25 14:46 of Lip/Tongue/Throat Home Meds Home Medications Medication Instructions Recorded Confirmed sertraline 50 mg tablet 50 mg PO DAILY 03/28/24 04/28/25 PNV [id number] 1 tab PO DAILY 10/09/24 04/28/25 [ Gummies] ferrous sulfate 325 mg (65 mg 325 mg PO DAILY 03/04/25 04/28/25 iron) tablet (Feosol) Previous Rx's Medication Instructions Recorded azelastine 137 mcg (0.1 %) nasal 2 spray intranasal BID PRN nasal 03/28/24 spray congestion #30 mL fluticasone propionate 50 2 spray intranasal DAILY #16 grams 03/28/24 mcg/actuation nasal spray,suspension ipratropium bromide 21 mcg (0.03 2 spray intranasal TID PRN 03/28/24 %) nasal spray postnasal drip #30 mL Results & Data (ED) Vital Signs Vital Signs - 24 hr 05/28/25 05:18 05/28/25 05:52 05/28/25 06:00 Temperature 36.8 C Temperature Source Oral Pulse Rate 129 H 99 H 106 H Pulse Rate [Apical] Pulse Rate from SpO2 Sensor 106 H Pulse Rhythm Regular Pulse Rhythm [Apical] Pulse Strength [Apical] Respiratory Rate 17 16 18 Respiratory Effort / Characteristics Non-Labored Spontaneous Respiratory Depth Normal Respiratory Pattern Regular Blood Pressure 118/70 114/70 Blood Pressure [Right Arm] Blood Pressure Mean 86 80 Blood Pressure Mean [Right Arm] Blood Pressure Position [Right Arm] Pulse Oximetry 97 97 98 Oxygen Delivery Method Room Air Room Air Room Air Sepsis Recent Fever Within 48 Hours Yes Sepsis New/Unexplained Change in Mental Status N/A Sepsis Action Taken by Nursing No Action Required 05/28/25 06:04 05/28/25 06:05 05/28/25 06:45 Temperature Temperature Source Pulse Rate 102 H Pulse Rate [Apical] 102 H 110 H Pulse Rate from SpO2 Sensor Pulse Rhythm Pulse Rhythm [Apical] Regular Regular Pulse Strength [Apical] Normal Normal Respiratory Rate 16 18 Respiratory Effort / Characteristics Non-Labored Spontaneous Non-Labored Spontaneous Respiratory Depth Normal Normal Respiratory Pattern Regular Blood Pressure Blood Pressure [Right Arm] 114/70 112/79 Blood Pressure Mean Blood Pressure Mean [Right Arm] 84 90 Blood Pressure Position [Right Arm] Lying Pulse Oximetry 100 98 Oxygen Delivery Method Room Air Room Air Sepsis Recent Fever Within 48 Hours Sepsis New/Unexplained Change in Mental Status Sepsis Action Taken by Nursing 05/28/25 07:00 05/28/25 07:15 Temperature Temperature Source Pulse Rate Pulse Rate [Apical] 105 H 108 H Pulse Rate from SpO2 Sensor Pulse Rhythm Pulse Rhythm [Apical] Pulse Strength [Apical] Respiratory Rate 20 20 Respiratory Effort / Characteristics Respiratory Depth Respiratory Pattern Blood Pressure Blood Pressure [Right Arm] 115/73 110/76 Blood Pressure Mean Blood Pressure Mean [Right Arm] 87 87 Blood Pressure Position [Right Arm] Semi-fowlers Pulse Oximetry 98 97 Oxygen Delivery Method Room Air Room Air Sepsis Recent Fever Within 48 Hours Sepsis New/Unexplained Change in Mental Status Sepsis Action Taken by Nursing Laboratory Data 05/28/25 05:41 05/28/25 05:41 Lab Results 05/28/25 05/28/25 05/28/25 Range/Units 05:41 05:43 06:40 WBC 14.10 H (4.8-10.8) K/ul RBC 4.55 (4.20-5.40) M/uL Hgb 13.8 (12.0-16.0) g/dl Hct 40.4 (37.0-47.0) % MCV 88.8 (80.0-100.0) fL MCH 30.3 (25.0-34.0) pg MCHC 34.2 (32.0-36.0) g/dL RDW Std Deviation 38.5 (36.4-46.3) fL RDW Coeff of José Miguel 11.9 (11.5-14.5) % Plt Count 246 (130-400) K/uL MPV 8.9 L (9.4-12.4) fL Immature Gran % (Auto) 0.3 % Neut % (Auto) 92.5 % Lymph % (Auto) 4.4 % Gray % (Auto) 2.1 % Eos % (Auto) 0.6 % Baso % (Auto) 0.1 % Neut # (Auto) 13.04 H (1.40-6.50) K/uL Lymph # (Auto) 0.62 L (1.20-3.40) K/uL Gray # (Auto) 0.30 (0.11-0.59) K/uL Eos # (Auto) 0.08 (0.00-0.50) K/uL Baso # (Auto) 0.02 (0.00-0.20) K/uL Immature Gran # (Auto) 0.04 (0.01-0.20) K/uL RBC Morphology Unremarkable PT 10.9 (9.0-12.0) Seconds INR 1.0 (0.9-1.1) APTT 24 (21-31) Seconds PTT Ratio 0.9 Sodium 136 (136-145) mmol/L Potassium 3.6 (3.5-5.1) mmol/L Chloride 101 (98-107) mmol/L Carbon Dioxide 26 (21-32) mmol/L Anion Gap 9 (3-11) BUN 18 (6-23) mg/dl Creatinine 0.62 (0.6-1.2) mg/dl Est Cr Clr Drug Dosing 126.3 ml/min eGFR 119.77 BUN/Creatinine Ratio 29.0 H (10-20) Glucose 110 H (70-99(Fasting)) mg/dl Lactate 2.3 H* (0.4-2.0) mmol/L Calcium 9.6 (8.6-10.3) mg/dl Magnesium 1.6 L (1.7-2.4) mg/dl Total Bilirubin 0.4 (0.2-1.0) mg/dl AST 16 (13-39) U/L ALT 16 (7-52) U/L Alkaline Phosphatase 82 (34-104) U/L Total Protein 6.9 (6.0-8.3) gm/dl Albumin 4.0 (3.4-5.0) gm/dl Globulin 2.9 (2.5-4.0) gm/dl Albumin/Globulin Ratio 1.4 (0.9-2) Urine Comment Administered Medications Vancomycin HCl 1,500 mg/ (Sodium Chloride) 530 mls @ 200 mls/hr IV NOW ONE Stop: 05/28/25 08:16 Last Admin: 05/28/25 06:34 Dose: 200 mls/hr Documented By: MYLENE Discontinued Medications Sodium Chloride (Nss) 1,000 mls @ 999 mls/hr IV .Q1H1M ONE Stop: 05/28/25 06:31 Last Infusion: 05/28/25 06:39 Dose: Infused Documented By: Admin: 05/28/25 05:46 Dose: 999 mls/hr Documented By: ANGELICA Piperacillin Sod/Tazobactam Sod (Zosyn) 4.5 gm in 120 mls @ 240 mls/hr IV NOW ONE Stop: 05/28/25 06:10 Last Infusion: 05/28/25 06:20 Dose: Infused Documented By: Admin: 05/28/25 05:50 Dose: 240 mls/hr Documented By: ANGELICA Sodium Chloride (Nss) 1,000 mls @ 999 mls/hr IV .Q1H1M ONE Stop: 05/28/25 07:04 Last Infusion: 05/28/25 07:16 Dose: Infused Documented By: arron Admin: 05/28/25 06:15 Dose: 999 mls/hr Documented By: MYLENE Discharge Plan Visit Data Chief Complaint: Chest/Rib Injury Stated Complaint: BREAST PAIN ED Provider: Oscar Woodruff ED Midlevel Provider: Chad Ferrari Discharge Problem: Mastitis, Vomiting, Fever Patient Disposition: Still a Patient Condition: Good Forms Stand Alone Forms: My [facility]og Prescriptions Prescriptions: No Action ipratropium bromide 21 mcg (0.03 %) spray,non-aerosol 2 spray intranasal TID PRN (Reason: postnasal drip) Qty: 30 11RF Rx Instructions: administer into each nostril azelastine 137 mcg (0.1 %) spray,non-aerosol 2 spray intranasal BID PRN (Reason: nasal congestion) Qty: 30 11RF Rx Instructions: administer into each nostril fluticasone propionate 50 mcg/actuation spray,suspension 2 spray intranasal DAILY Qty: 16 11RF Rx Instructions: administer into each nostril ferrous sulfate [Feosol] 325 mg (65 mg iron) tablet 325 mg PO DAILY sertraline 50 mg tablet 50 mg PO DAILY PNV [id number] [ Gummies] 1 tab PO DAILY Referrals Referrals: Terrie Baker MD [Primary Care Provider] -
[2025-05-28] MEDS: PIPERACILLIN/TAZOBACTAM 4.5 GM/120 ML BAG IV ONE (05:50)
[2025-05-28 06:13] LABS: Hematocrit (blood only) 40.4 % (37.0-47.0); Hemoglobin 13.8 g/dl (12.0-16.0); Mean Corpuscular Hemoglobin 30.3 pg (25.0-34.0); Mean Corpuscular Volume 88.8 fL (80.0-100.0); Platelet Count 246 K/uL (130-400); RDW Standard Deviation 38.5 fL (36.4-46.3); Red Blood Count 4.55 M/uL (4.20-5.40); White Blood Count 14.10 K/ul (4.8-10.8)
[2025-05-28 06:32] LABS: Alanine Aminotransferase 16.0 U/L (7-52); Albumin Globulin Ratio 1.4 (0.9-2); Albumin Level 4.0 gm/dl (3.4-5.0); Alkaline Phosphatase 82.0 U/L (34-104); Anion Gap 9.0 (3-11); Bilirubin,Total 0.4 mg/dl (0.2-1.0); Blood Urea Nitrogen 18.0 mg/dl (6-23); Calcium 9.6 mg/dl (8.6-10.3); Carbon Dioxide 26.0 mmol/L (21-32); Chloride 101.0 mmol/L (98-107); Creatinine Clr Calc Pharmacy 126.3 ml/min; Globulin 2.9 gm/dl (2.5-4.0); Glucose 110.0 mg/dl (70-99(Fasting)); Magnesium 1.6 mg/dl (1.7-2.4); Potassium 3.6 mmol/L (3.5-5.1); Sodium 136.0 mmol/L (136-145); Total Protein 6.9 gm/dl (6.0-8.3)
[2025-05-28] MEDS: VANCOMYCIN HCL 1,500 MG in SODIUM CHLORIDE 0.9% 500 ML IV ONE (06:34)
[2025-05-28 06:41] LABS: Immature Granulocytes # (auto) 0.04 K/uL (0.01-0.20); Immature Granulocytes % (auto) 0.3 %; RBC Morphology Unremarkable
[2025-05-28 06:42] LABS: INR 1.0 (0.9-1.1); Partial Thromboplastin Time 24 Seconds (21-31); Prothrombin Time 10.9 Seconds (9.0-12.0)
--- NOTE | 2025-05-28 07:07 | Emergency Department Note ---
ED Visit Note [id number]-patient received in signout from LEXIE Hart. This was pending repeat evaluation following IV fluids. Please refer to her documentation regarding presentation. Patient does have bilateral mastitis. She has systemic infectious findings to include tachycardia, WBC elevation. [id number] did discuss findings and plan of care with Dr. Quesada, CLOTHING MAN. Patient's heart rate began to improve with the IV fluids. We discussed if the patient continues to do well, oral Bactrim is reasonable in the outpatient setting. 1000-plan was initially discharge on oral Bactrim with close outpatient follow- up, however the patient is now with increasing heart rate at 112 at this time with a pressure of 95/69. Patient feels tired and unwell at this time. There is no active vomiting. At this time we will proceed with inpatient management for IV antibiotics and further treatment of the suspected bilateral mastitis. Inpatient management felt to be warranted noting the downtrending blood pressure, persistent tachycardia despite adequate IV fluid resuscitation. Case discussed with the hospitalist service. Please refer to further documentation regarding her stay. .
[2025-05-28 07:34] LABS: Appearance Urine Clear (Clear); Bacteria Urine Automated None Seen (None Seen); Cast Urine Automated 0-2 /lpf (0-2); Epithelial Cell Urine Auto 0-2 /hpf (0-2); Glucose Urine UA Negative (Negative); RBC Urine Automated 0-2 /hpf (0-2); WBC Urine Automated 0-5 /hpf (0-5)
[2025-05-28] MEDS: MAGNESIUM SULFATE / D5W 1 GM/100 ML BAG IV STA (07:45)
[2025-05-28 08:16] LABS: Thyroid Stimulating Hormone 0.631 uIu/ml (0.300-4.500)
[2025-05-28 08:18] LABS: T4 Free Thyroxine 0.7 ng/dl (0.61-1.60)
--- NOTE | 2025-05-28 11:38 | History & Physical Report ---
"Date of Service May 28, 2025 Assessment & Plan (1) Mastitis: (2) Anxiety: (3) Sepsis: Plan Alfreda is a 34F with a PMHx of on 04/23/2025, and anxiety who presents with concerns for recurrent mastitis. completed course of dicloxacillin about 5 weeks ago, we presented as stated symptoms started 05/28 at 2 AM. Admitted after serious concerns with hypotension and tachycardia #Recurrent mastitis | SIRS - hypotensive and tachycardic in the ER, received 2 L NSS. Lactate 2.3 that has normalized with fluids. Mild leukocytosis at 14. Consult [employer] - did discuss antibiotics with them, MRSA is more likely on recurrent infections that were not treated with MRSA coverage the first time. Recommend continued vancomycin, and ceftriaxone. plan would be Bactrim at discharge once patient is improving Discussed with consultantthey plan to see her today to provide tips/tricks to prevent mastitis Blood cultures pending Note pt is when choosing medications AM CBC and BMP #mental health - continue Zoloft Dispo: obs to med/tele DVT proh: encourage ambulation History of Present Illness Chief Complaint: mastitis Primary Care Provider: Terrie Baker MD Alfreda is a 34F with a PMHx of on 04/23/2025, and anxiety who presents with concerns for recurrent mastitis. Had mastitis 5 days PP and treated with oral dicloxacillin. Reports this episode, symptoms significantly improved in about 24 hours and completely resolved since. With current episodes of mastitis, symptoms started around 2am on 05/28, with pain, erythema and warmth. Also reports that she vomited once this morning and overall is feeling worse than when she had mastitis the first time. Initially plan was to discharge home on Bactrim, but remained tachycardic and hypotensive and decision made for admission. She did not take her medications this morning, overall has been eating well but just did not eat since she has vomited this morning. She wishes to be a full code. Allergies Allergy/AdvReac Type Severity Reaction Status Date / Time cefaclor Allergy Severe RASH Verified 04/28/25 14:46 tramadol Allergy Intermediate DELIRIUM Verified 04/28/25 14:46 trazodone Allergy Intermediate DELIRIUM Verified 04/28/25 14:46 nickel Allergy Mild red, itchy Verified 04/28/25 14:46 with cheap earrings apple Allergy Swelling Verified 04/28/25 14:46 of Lip/Tongue/Throat thompson Allergy Swelling Verified 04/28/25 14:46 of Lip/Tongue/Throat peach Allergy Swelling Verified 04/28/25 14:46 of Lip/Tongue/Throat Home Medications Medication Instructions Recorded Confirmed Type azelastine 137 mcg (0.1 %) nasal 2 spray intranasal BID PRN nasal 03/28/24 04/28/25 Rx spray congestion #30 mL fluticasone propionate 50 2 spray intranasal DAILY #16 grams 03/28/24 04/28/25 Rx mcg/actuation nasal spray,suspension ipratropium bromide 21 mcg (0.03 2 spray intranasal TID PRN 03/28/24 04/28/25 Rx %) nasal spray postnasal drip #30 mL sertraline 50 mg tablet 50 mg PO DAILY 03/28/24 04/28/25 History PNV no.[id number] 1 tab PO DAILY 10/09/24 04/28/25 History [ Gummies] ferrous sulfate 325 mg (65 mg 325 mg PO DAILY 03/04/25 04/28/25 History iron) tablet (Feosol) Past Med/Surg History Problem List (Updated 05/29/25 @ 12:21 by Aziza White MD, FACOG) Sepsis Fever (Acute) Vomiting (Acute) Mastitis (Acute) care following vaginal delivery Encounter for supervision of normal in multigravida Encounter for anatomic survey Early stage of Adrenal nodule Left January 14, 2021/CT scan with IV and oral contrast Low TSH level Medical History Encounter for induction of labor Varicella vaccination Anxiety Acne Chronic rhinitis Oral allergy syndrome Food allergy fresh peaches, apples, pitted fruit Classic migraine with aura Anxiety associated with depression Adrenal nodule Under surveillance by endo, non-functioning adrenal incidentaloma- plan for repeat CT 1 year Thyroid nodule Complex ovarian cyst Incomplete August 2023 [id number] condition Ruptured lumbar disc Migraine Surgical History History of colonoscopy History of esophagogastroduodenoscopy (EGD) History of wisdom tooth extraction History of placement of ear tubes Status post epidural steroid injection hip and spine History of tonsillectomy Family History Grandmother Diabetes Transplanted liver Mother Michelle thyroiditis, fibrous variant Drug abuse Anxiety Depression Thyroid disease History of PCOS Grandfather Alcohol abuse Hypertension Grandfather Drug abuse Alcohol abuse Father Drug abuse Alcohol abuse Anxiety Unknown Leukemia Sister Drug abuse Aunt Drug abuse Grandfather (Maternal) Myocardial infarction Grandfather (Paternal) Myocardial infarction Other No family history of adverse response to anesthesia Denies family history of Ovarian cancer Prostate cancer Breast cancer Colorectal cancer Uterine cancer Social History Smoking Status: Former smoker Tobacco Type: Cigarettes Second Hand Exposure: No; Do You Dip or Chew Tobacco: No; Hx Alcohol Use: No Hx Substance Use: No Preferred Language: Malay Communication Ability: Effective Visual Impairment: No Limitations Hearing Ability: Normal Manager Technical Services Required: No Beliefs That Will Affect Care: None marital status: Single marital status details: bg Cantu (34) [phone] Current Living Situation: Family Current Living Situation Comment: Lives with Fob and child, cats-fob changing litter current occupational status: employed current occupation: [employer] Feels Safe at Home: Yes Safety Concerns: Feels Safe At This Time Childhood Exposure to Second-Hand Smoke: Yes Dental Care, Regularly: Yes Physical Activity Frequency: 1-2 Times per Week Seatbelt Use: always Sunscreen Use: Yes Assistive Devices: Glasses Review of Systems Review of Systems: All systems reviewed & are unremarkable except as noted in Subjective Physical Exam Physical Exam: General: NAD, VS as above Resp: normal respiratory effort, lungs clear to auscultation CV: Tachycardic with irregular, no murmur, Chest: Bilateral breasts are erythematous and warm, No masses or clogged ducts felt with palpation. Abd: normal bowel sounds, non tender, soft Extremities: Moves all extremities, no edema Neuro: A&O x3, Skin: intact, no lesions noted Results & Data Results & Data Vital Signs (Past 12 Hours) Vital Signs Temp Pulse Pulse Resp BP BP Pulse Ox 05/28/25 11:00 106/80 05/28/25 10:48 108 H 17 05/28/25 10:42 100 H 15 113/72 05/28/25 10:08 105 H 05/28/25 10:00 103 H 16 95/69 L 98 05/28/25 09:45 104 H 16 98/75 L 97 05/28/25 09:30 101 H 22 109/69 97 05/28/25 09:15 104 H 20 97/71 L 97 05/28/25 09:00 107 H 20 104/69 98 05/28/25 08:45 107 H 18 104/69 98 05/28/25 08:30 109 H 20 107/85 98 05/28/25 08:15 99 H 18 112/80 97 05/28/25 08:00 96 H 18 104/77 97 05/28/25 07:45 106 H 20 104/68 97 05/28/25 07:30 101 H 22 107/71 97 05/28/25 07:15 108 H 20 110/76 97 05/28/25 07:00 105 H 20 115/73 98 05/28/25 06:45 110 H 18 112/79 98 05/28/25 06:05 102 H 16 114/70 100 05/28/25 06:04 102 H 05/28/25 06:00 106 H 18 114/70 98 05/28/25 05:52 99 H 16 97 05/28/25 05:18 98.2 F 129 H 17 118/70 97 O2 Del Method 05/28/25 11:00 05/28/25 10:48 05/28/25 10:42 05/28/25 10:08 05/28/25 10:00 Room Air 05/28/25 09:45 Room Air 05/28/25 09:30 Room Air 05/28/25 09:15 Room Air 05/28/25 09:00 Room Air 05/28/25 08:45 Room Air 05/28/25 08:30 Room Air 05/28/25 08:15 Room Air 05/28/25 08:00 Room Air 05/28/25 07:45 Room Air 05/28/25 07:30 Room Air 05/28/25 07:15 Room Air 05/28/25 07:00 Room Air 05/28/25 06:45 Room Air 05/28/25 06:05 Room Air 05/28/25 06:04 05/28/25 06:00 Room Air 05/28/25 05:52 Room Air 05/28/25 05:18 Room Air Laboratory Results CBC, chemistry, magnesium reviewed, Pro-[place] reviewed, TSH reviewed UA reviewed Supervising Physician Co-Signing Physician Notes I personally saw and examined the patient. I independently reviewed the labs, EKG, imaging, problem list, medication list, past medical history and family history. I verified all nugent points and agree with Beena Fields PA-C with the following exceptions and/or additions: 34 year old presents to the ER with bilateral breast cellulitis/mastitis. O/E bilateral breast erythema, swelling confined to breast tissue but involving both breasts right > left without fluctuant area A/P Mastitis / sepsis Lactate < 4, MAP > 65, patient eating and drinkin well, I don't feel strongly about MRSA coverage as appears the previous antibiotics worked but per OB recommending coverage for this currently therefore will continue on ceftriaxone + vancomycin epnding blood culture results PG Care Time/CCT Total # of Minutes Spent Total Time Spent with Patient: Total time spent is greater than 50% in coordination of care (as documented) at patient's floor/unit and/or counseling patient: Coding Level of Care Code 38224 INT INP/OBS CARE 3/75MIN Diagnoses Mastitis N61.0 Anxiety F41.9 Sepsis A41.9"
[2025-05-28] MEDS: ACETAMINOPHEN 500 MG TAB PO STA (12:05)
[2025-05-28] MEDS ORDERED: MELATONIN 3 MG TAB PO PRN (13:35)
[2025-05-28] MEDS ORDERED: ONDANSETRON INJ 2 MG/ML 2 ML VIAL IV PRN (13:35)
--- NOTE | 2025-05-28 14:00 | Pharmacy Report ---
Pharmacy PK ABX Note - Date of Service May 28, 2025 - Assessment and Plan Assessment 34 year old F receiving vancomycin/ceftriaxone for treatment of mastitits- 5 weeks post-. Pertinent microbiologic data includes: blood cultures pending Day # 1 of antimicrobial therapy. Plan Vancomycin * Loading dose: 1500 mg IV x 1 * Maintenance dose: 1000 mg IV every 8 hours * Regimen is predicted to achieve target AUC/DANIEL of 400-600 mg/L.hr * Trough level ordered for: 05/29/25 @ 0830 Pharmacy will continue to follow and will adjust dose/frequency as necessary. Thank you. Pharmacy has transitioned to AUC monitoring for vancomycin. AUC/DANIEL is the preferred PK/PD target and is associated with decreased risk of nephrotoxicity compared to traditional trough targets.
[2025-05-28] MEDS: PRENATAL VITAMIN 1 TAB PO SCH (14:14)
[2025-05-28] MEDS: DOCUSATE SODIUM 100 MG CAP PO SCH (14:14)
[2025-05-28] MEDS: cefTRIAXone SODIUM 2,000 MG/50 ML BAG IV SCH (14:14)
[2025-05-28] MEDS: VANCOMYCIN HCL / NSS 1,000 MG/270 ML BAG IV SCH (15:36)
--- NOTE | 2025-05-28 15:47 | OB/GYN Consultation ---
Date of Consultation May 28, 2025 Assessment & Plan (1) Mastitis: IV abx per primary team, and once afebrile x24 hours plus clinically improved, plan is to transfer to PO bactrim for outpatient therapy completion. Discussed with patient and family supporters today that she is thinking of weaning and using formula to avoid this happening again, and she might want to start a CHC to assist in that process by decreasing her very abundant milk supply. She declined Rx now but is thinking she may want to start that at her ppx checkup next week, which may correlate nicely with the end of a course of bactrim. Until then she is following financial management consultant recs regarding pumping and removal of milk from the breast, ice and compression. She will eventually want tubal ligation, but is aware that use of CHC in the interim would be helpful to decrease her milk supply and the tubal itself would not be expected to offer that benefit. History of Present Illness Attending Physician: Juan Summers MD History of Present Illness 34yo ppd#35 from with [facility]. Has had ppx mastitis treated outpatient successfully with dicloxacillin, then unfortunately recurred in the last 24 hours with bilateral breast pain and erythema. This may be related to attempting to breastfeed directly after having primarily pumped before now, with a baby not fully emptying the breast as well as pumping did, but that is somewhat uncertain. Upon getting mastitis again Alfreda has been feeling very poorly and presented to ER where she was found to have hypotension and tachycardia, raising concern for SIRS/Sepsis as well as recurrent bilateral mastitis. She was therefore admitted by the medicine team for inpatient care. Since arriving in ER and having her first dose of IV Abx, symptoms have improved but not resolved. She has been seen by Bella White for care and the management of primary team is much appreciated. Allergies Allergy/AdvReac Type Severity Reaction Status Date / Time cefaclor Allergy Severe RASH Verified 04/28/25 14:46 tramadol Allergy Intermediate DELIRIUM Verified 04/28/25 14:46 trazodone Allergy Intermediate DELIRIUM Verified 04/28/25 14:46 nickel Allergy Mild red, itchy Verified 04/28/25 14:46 with cheap earrings apple Allergy Swelling Verified 04/28/25 14:46 of Lip/Tongue/Throat alba Allergy Swelling Verified 04/28/25 14:46 of Lip/Tongue/Throat peach Allergy Swelling Verified 04/28/25 14:46 of Lip/Tongue/Throat Home Medications Medication Instructions Recorded Confirmed Type azelastine 137 mcg (0.1 %) nasal 2 spray intranasal BID PRN nasal 03/28/24 04/28/25 Rx spray congestion #30 mL fluticasone propionate 50 2 spray intranasal DAILY #16 grams 03/28/24 04/28/25 Rx mcg/actuation nasal spray,suspension ipratropium bromide 21 mcg (0.03 2 spray intranasal TID PRN 03/28/24 04/28/25 Rx %) nasal spray postnasal drip #30 mL sertraline 50 mg tablet 50 mg PO DAILY 03/28/24 04/28/25 History PNV no.[id number] 1 tab PO DAILY 10/09/24 04/28/25 History [ Gummies] ferrous sulfate 325 mg (65 mg 325 mg PO DAILY 03/04/25 04/28/25 History iron) tablet (Feosol) Patient History Medical History Encounter for induction of labor Varicella vaccination Anxiety Acne Chronic rhinitis Oral allergy syndrome Food allergy fresh peaches, apples, pitted fruit Classic migraine with aura Anxiety associated with depression Adrenal nodule Under surveillance by endo, non-functioning adrenal incidentaloma- plan for repeat CT 1 year Thyroid nodule Complex ovarian cyst Incomplete August 2023 [id number] condition Ruptured lumbar disc Migraine Surgical History History of colonoscopy History of esophagogastroduodenoscopy (EGD) History of wisdom tooth extraction History of placement of ear tubes Status post epidural steroid injection hip and spine History of tonsillectomy Family History Grandmother Diabetes Transplanted liver Mother Michelle thyroiditis, fibrous variant Drug abuse Anxiety Depression Thyroid disease History of PCOS Grandfather Alcohol abuse Hypertension Grandfather Drug abuse Alcohol abuse Father Drug abuse Alcohol abuse Anxiety Unknown Leukemia Sister Drug abuse Aunt Drug abuse Grandfather (Maternal) Myocardial infarction Grandfather (Paternal) Myocardial infarction Other No family history of adverse response to anesthesia Denies family history of Ovarian cancer Prostate cancer Breast cancer Colorectal cancer Uterine cancer Social History Smoking Status: Former smoker Tobacco Type: Cigarettes Second Hand Exposure: No; Do You Dip or Chew Tobacco: No; Hx Alcohol Use: No Hx Substance Use: No Preferred Language: Paraguayan Communication Ability: Effective Visual Impairment: No Limitations Hearing Ability: Normal Datapower Consultant Required: No Beliefs That Will Affect Care: None marital status: Single marital status details: bg Cantu (34) [phone] Current Living Situation: Family Current Living Situation Comment: Lives with Fob and child, cats-fob changing litter current occupational status: employed current occupation: [employer] Feels Safe at Home: Yes Safety Concerns: Feels Safe At This Time Childhood Exposure to Second-Hand Smoke: Yes Dental Care, Regularly: Yes Physical Activity Frequency: 1-2 Times per Week Seatbelt Use: always Sunscreen Use: Yes Assistive Devices: Glasses Physical Exam Constitutional: WD/WN, vitals as above Neck: supple, no thyromegaly Respiratory: normal resp effort and speech Cardiovascular: no significant distal extremity edema Chest (Breasts): Additional Comments: Bilateral erythema up to 2" above nipple complex and to bottom of breasts. No open wounds or lesions. Results & Data Vital Signs (Past 12 Hours) Vital Signs Temp Pulse Pulse Resp BP BP Pulse Ox 05/28/25 15:24 99.3 F 108 H 20 106/69 98 05/28/25 14:08 119 H 05/28/25 13:38 99.7 F H 111 H 18 103/65 98 05/28/25 13:35 99.7 F H 111 H 18 103/65 98 05/28/25 13:35 05/28/25 12:37 05/28/25 12:27 123 H 24 138/70 05/28/25 12:03 122 H 19 05/28/25 12:00 117/87 05/28/25 11:59 100.9 F H 05/28/25 11:45 124 H 20 05/28/25 11:30 112 H 16 125/84 05/28/25 11:00 106/80 05/28/25 10:48 108 H 17 05/28/25 10:42 100 H 15 113/72 05/28/25 10:08 105 H 10/15/25 10:00 103 H 16 95/69 L 98 05/28/25 09:45 104 H 16 98/75 L 97 05/28/25 09:30 101 H 22 109/69 97 05/28/25 09:15 104 H 20 97/71 L 97 05/28/25 09:00 107 H 20 104/69 98 05/28/25 08:45 107 H 18 104/69 98 05/28/25 08:30 109 H 20 107/85 98 05/28/25 08:15 99 H 18 112/80 97 05/28/25 08:00 96 H 18 104/77 97 05/28/25 07:45 106 H 20 104/68 97 05/28/25 07:30 101 H 22 107/71 97 05/28/25 07:15 108 H 20 110/76 97 05/28/25 07:00 105 H 20 115/73 98 05/28/25 06:45 110 H 18 112/79 98 05/28/25 06:05 102 H 16 114/70 100 05/28/25 06:04 102 H 05/28/25 06:00 106 H 18 114/70 98 05/28/25 05:52 99 H 16 97 05/28/25 05:18 98.2 F 129 H 17 118/70 97 Pulse Ox O2 Del Method O2 Del Method O2 Flow Rate 05/28/25 15:24 Room Air 05/28/25 14:08 05/28/25 13:38 Room Air 05/28/25 13:35 Room Air 05/28/25 13:35 98 Room Air 0 05/28/25 12:37 Room Air 05/28/25 12:27 05/28/25 12:03 05/28/25 12:00 05/28/25 11:59 05/28/25 11:45 05/28/25 11:30 05/28/25 11:00 05/28/25 10:48 05/28/25 10:42 05/28/25 10:08 05/28/25 10:00 Room Air 05/28/25 09:45 Room Air 05/28/25 09:30 Room Air 05/28/25 09:15 Room Air 05/28/25 09:00 Room Air 05/28/25 08:45 Room Air 05/28/25 08:30 Room Air 05/28/25 08:15 Room Air 05/28/25 08:00 Room Air 05/28/25 07:45 Room Air 05/28/25 07:30 Room Air 05/28/25 07:15 Room Air 05/28/25 07:00 Room Air 05/28/25 06:45 Room Air 05/28/25 06:05 Room Air 05/28/25 06:04 05/28/25 06:00 Room Air 05/28/25 05:52 Room Air 05/28/25 05:18 Room Air PG Care Time/CCT Total # of Minutes Spent Total Time Spent with Patient: Total time spent is greater than 50% in coordination of care (as documented) at patient's floor/unit and/or counseling patient: Coding Level of Care Code 37322 INT INP/OBS CARE 140MIN Diagnoses Mastitis N61.0
[2025-05-28] MEDS: IBUPROFEN 600 MG TAB PO PRN (17:18)
[2025-05-28] MEDS ORDERED: VANCOMYCIN HCL 1,000 MG in SODIUM CHLORIDE 0.9% 250 ML IV SCH (21:00)
[2025-05-28 21:52] LABS: A calco-baum cmplx NotReported Not Detected (NotDetected); Bact fragilis Not Reported Not Detected (NotDetected); Blood Culture Id Panel See PCR Comment (NotDetected); C auris Not Reported Not Detected (NotDetected); Calbicans Not Reported Not Detected (NotDetected); Candida glabrata Not Reported Not Detected (NotDetected); Candida krusei Not Reported Not Detected (NotDetected); Cneoformans/gatti Not Reported Not Detected (NotDetected); Cparapsilosis Not Reported Not Detected (NotDetected); Ctropicalis Not Reported Not Detected (NotDetected); E cloacae compx Not Reported Not Detected (NotDetected); Efaecalis Not Reported Not Detected (NotDetected); Efaecium Not Reported Not Detected (NotDetected); Enterobacterales Not Reported Not Detected (NotDetected); Escherichia coli Not Reported Not Detected (NotDetected); H influenzae Not Reported Not Detected (NotDetected); K aerogenes Not Reported Not Detected (NotDetected); Koxytoca Not Reported Not Detected (NotDetected); Kpneumoniae grp Not Reported Not Detected (NotDetected); Lmonocyt Not Reported Not Detected (NotDetected); N meningitidis Not Reported Not Detected (NotDetected); P aeruginosa Not Reported Not Detected (NotDetected); Proteus spp Not Reported Not Detected (NotDetected); Salmonella spp Not Reported Not Detected (NotDetected); Staph lugdunensis Not Reported Not Detected (NotDetected); Staph spp. Not Reported Not Detected (NotDetected); Staphaureus Not Reported Not Detected (NotDetected); Staphepi Not Reported Not Detected (NotDetected); Stenmaltophilia Not Reported Not Detected (NotDetected); Strep agal(GrpB) Not Reported Not Detected (NotDetected); Strep pneum Not Reported Not Detected (NotDetected); Strep pyog (GrpA) Not Reported Not Detected (NotDetected); Strep spp Not Reported DETECTED (NotDetected)
[2025-05-28 21:55] LABS: Streptococcus spp DETECTED (NotDetected)
[2025-05-28] MEDS: ACETAMINOPHEN 500 MG TAB PO PRN (23:05)
[2025-05-29] MEDS: SERTRALINE HCL 50 MG TABLET PO SCH (07:58)
[2025-05-29 08:58] LABS: Hematocrit (blood only) 33.5 % (37.0-47.0); Hemoglobin 11.1 g/dl (12.0-16.0); Immature Granulocytes # (auto) 0.08 K/uL (0.01-0.20); Immature Granulocytes % (auto) 0.6 %; Mean Corpuscular Hemoglobin 29.6 pg (25.0-34.0); Mean Corpuscular Volume 89.3 fL (80.0-100.0); Platelet Count 181 K/uL (130-400); RDW Standard Deviation 41.0 fL (36.4-46.3); Red Blood Count 3.75 M/uL (4.20-5.40); White Blood Count 13.15 K/ul (4.8-10.8)
[2025-05-29 09:12] LABS: Anion Gap 6.0 (3-11); Blood Urea Nitrogen 11.0 mg/dl (6-23); Calcium 8.6 mg/dl (8.6-10.3); Carbon Dioxide 23.0 mmol/L (21-32); Chloride 108.0 mmol/L (98-107); Creatinine Clr Calc Pharmacy 126.3 ml/min; Glucose 78.0 mg/dl (70-99(Fasting)); Potassium 3.3 mmol/L (3.5-5.1); Sodium 137.0 mmol/L (136-145)
[2025-05-29] MEDS: VANCOMYCIN LEVEL ONE (09:27)
--- NOTE | 2025-05-29 12:21 | Obstetrical Progress Note ---
Date of Service May 29, 2025 Assessment & Plan (1) Mastitis: (2) Sepsis: Plan Blood cultures are positive for GPC--strep dysgalactiae. sensitivities pending. antibiotics per culture and primary team. After my exam, I do not think that the patient has any s/s of abscess. If we need to image, will have to do chest CT as unable to do bilateral breast ultrasound here--they do limited breast ultrasound. I think we can hold off for now. Continue evaluation with lactatio n consultants--per Janee, her exam is improved today as far as the more thickened areas of the breast noted. Does note continued erythema that is minimally improved. Will continue to follow. Otherwise, no other ob issues. Admission and Anticipated Discharge Date Admission Date: May 28, 2025 Subjective Patient resting comfortably in bed. Notes she does not have significant pain in breasts. Notes eating well. no issues with bowels or bladder. Currently talking with Bella, . Physical Exam Physical Exam: Tm since admission 38.3 05/28 at 1159 Tm last 24 hrs 37.8 05/29 0434 Constitutional: WD/WN, vitals as above Chest (Breasts): Breast: normal inspection of axillae, + skin thickening (slightly on the right breast uoq), normal palpation of axillae and + breast tenderness (minimal); + abnormal inspection of breast (both breast erythematous and warm throughout), no breast mass and no axillary mass (no lad appreciated) Results & Data Vital Signs (Past 12 Hours) Vital Signs Temp Pulse Pulse Resp BP BP Pulse Ox 05/29/25 09:32 36.8 C 05/29/25 08:20 37.2 C 97 H 17 103/65 96 05/29/25 06:58 111 H 05/29/25 04:34 37.8 C H 109 H 20 108/65 96 05/29/25 02:06 121 H O2 Del Method 05/29/25 09:32 05/29/25 08:20 Room Air 05/29/25 06:58 05/29/25 04:34 Room Air 05/29/25 02:06 PG Care Time/CCT Total # of Minutes Spent Total Time Spent with Patient: Total time spent is greater than 50% in coordination of care (as documented) at patient's floor/unit and/or counseling patient: Coding Level of Care Code 07228 SUB INP/OBS CARE 09/07MIN Diagnoses Mastitis N61.0 Sepsis A41.9
[2025-05-29] MEDS: POTASSIUM CHLORIDE CRTAB 20 MEQ TABCR PO STA (13:21)
--- NOTE | 2025-05-29 15:12 | Pharmacy Report ---
Pharmacy PK ABX Note - Date of Service May 29, 2025 - Assessment and Plan Assessment 05/29 * Random vancomycin level this AM came back at 8 mcg/ml - current vancomycin dosing is estimated to achieve goal AUC/DANIEL therefore will continue current regimen. 2/ blood cultures positive with strep species - ID consulted 05/28 * 34 year old F receiving vancomycin/ceftriaxone for treatment of mastitits- 5 weeks post-. Pertinent microbiologic data includes: blood cultures pen ding Plan Vancomycin * Continue 1000 mg iv q 8 hours Pharmacy will continue to follow and will adjust dose/frequency as necessary. Thank you. Pharmacy has transitioned to AUC monitoring for vancomycin. AUC/DANIEL is the preferred PK/PD target and is associated with decreased risk of nephrotoxicity compared to traditional trough targets.
--- NOTE | 2025-05-29 19:49 | Hospitalist Progress Note ---
Date of Service May 29, 2025 Assessment & Plan (1) Mastitis: (2) Anxiety: (3) Sepsis: (4) Streptococcal bacteremia: Plan 34F with a PMHx of on 04/23/2025 and anxiety who presents with concerns for recurrent mastitis. completed course of dicloxacillin about 5 weeks ago, we p resented as stated symptoms started 05/28 at 2 AM. #Mastitis / Sepsis / Strep Bacteremia - hypotensive and tachycardic in the ER, received 2 L NSS. Lactate 2.3 that has normalized with fluids. Mild leukocytosis at 14. Consult CORPORATE SECURITY MANAGER - appreciate management along with groundwater consultant Blood cultures - strep dysgalactiae - will discontinue vancomycin with unlikely resistant to B lactams but pending full sensitivities, continue ceftriaxone, will consult ID to assist with duration of treatment given recurrence after dicloxacillin #mental health - continue Zoloft VTE Prophylaxis - encourage ambulation Dispo: continue med/tele, now meets criteria for full admission due to bacteremia, will switch Admission and Anticipated Discharge Date Admission Date: May 28, 2025 Subjective Feels slightly improved although erythematous area not significantly changed. No fever since midday yesterday. Physical Exam Respiratory: normal respiratory effort, lungs clear to auscultation Cardiovascular: Rate/Rhythm: regular rhythm and + tachycardic Chest (Breasts): Breast: + abnormal inspection of breast (bilateral erythema and swelling originating from nipple, no fluctuant area) Results & Data Results & Data Vital Signs (Past 12 Hours) Vital Signs Temp Pulse Pulse Resp BP BP Pulse Ox 05/29/25 15:47 36.8 C 91 H 17 110/72 96 05/29/25 14:10 100 H 05/29/25 09:32 36.8 C 05/29/25 08:20 37.2 C 97 H 17 103/65 96 O2 Del Method 05/29/25 15:47 Room Air 05/29/25 14:10 05/29/25 09:32 05/29/25 08:20 Room Air PG Care Time/CCT Total # of Minutes Spent Total Time Spent with Patient: Total time spent is greater than 50% in coordination of care (as documented) at patient's floor/unit and/or counseling patient: Coding Level of Care Code 68197 SUB INP/OBS CARE 2/35MIN Diagnoses Mastitis N61.0 Anxiety F41.9 Sepsis A41.9 Streptococcal bacteremia R78.81; B95.5
[2025-05-30 06:01] LABS: Hematocrit (blood only) 33.5 % (37.0-47.0); Hemoglobin 11.7 g/dl (12.0-16.0); Immature Granulocytes # (auto) 0.05 K/uL (0.01-0.20); Immature Granulocytes % (auto) 0.5 %; Mean Corpuscular Hemoglobin 31.0 pg (25.0-34.0); Mean Corpuscular Volume 88.6 fL (80.0-100.0); Platelet Count 193 K/uL (130-400); RDW Standard Deviation 40.0 fL (36.4-46.3); Red Blood Count 3.78 M/uL (4.20-5.40); White Blood Count 10.25 K/ul (4.8-10.8)
[2025-05-30 06:22] LABS: Anion Gap 7.0 (3-11); Blood Urea Nitrogen 10.0 mg/dl (6-23); Calcium 8.9 mg/dl (8.6-10.3); Carbon Dioxide 24.0 mmol/L (21-32); Chloride 109.0 mmol/L (98-107); Creatinine Clr Calc Pharmacy 130.6 ml/min; Glucose 88.0 mg/dl (70-99(Fasting)); Magnesium 1.9 mg/dl (1.7-2.4); Potassium 4.2 mmol/L (3.5-5.1); Sodium 140.0 mmol/L (136-145)
--- NOTE | 2025-05-30 07:42 | Obstetrical Progress Note ---
Date of Service May 30, 2025 Assessment & Plan (1) Streptococcal bacteremia: (2) care following vaginal delivery: Plan All clinical parameters are improving: decreasing wbc, improved exam, no fever in the last 24 hours. Waiting for sensitivities. continue visits. Primary care per hospitalists on antibiotic choice and course. Admission and Anticipated Discharge Date Admission Date: May 29, 2025 Subjective Patient notes she is feeling better but is frustrated about hospitalization. She is tearful. no n/v. Voiding without issues. minimal pain. Physical Exam Constitutional: WD/WN, vitals as above Chest (Breasts): Breast: normal inspection of breasts (bilateral erythema, left improving, right about the same), normal inspection of axillae, normal palpation of breasts, normal palpation of axillae and + breast tenderness (slight); no skin thickening, no breast mass and no axillary mass Psychiatric: A+Ox3, euthymic affect Results & Data Vital Signs (Past 12 Hours) Vital Signs Temp Pulse Pulse Resp BP Pulse Ox O2 Del Method 05/30/25 07:36 36.7 C 83 18 113/77 96 Room Air 05/30/25 07:14 84 05/30/25 04:04 36.6 C 85 18 98/58 L 98 Room Air 05/29/25 23:09 37.0 C 102 H 18 111/71 96 Room Air 05/29/25 21:51 102 H PG Care Time/CCT Total # of Minutes Spent Total Time Spent with Patient: Total time spent is greater than 50% in coordination of care (as documented) at patient's floor/unit and/or counseling patient: Coding Level of Care Code 12664 SUB INP/OBS CARE 09/07MIN Diagnoses Streptococcal bacteremia R78.81; B95.5 care following vaginal delivery Z39.2
--- NOTE | 2025-05-30 09:43 | Infectious Disease Consult ---
Date of Consultation May 30, 2025 Assessment & Plan (1) Streptococcal bacteremia: (2) Sepsis: (3) Mastitis: Plan This is a 34-year-old female status post vaginal delivery 04/23/2025. Her post course was complicated by bilateral mastitis (04/28/2025)with fever. She was treated with a 10-day course of dicloxacillin with improvement. She presents to the ED on 05/28/2025 with acute onset of bilateral breast erythema, warmth and pain. This was associated with nausea, vomiting and a fever with Tmax of 100.3. She took acetaminophen and ibuprofen but continued to have significant pain with chills and bilateral breast tenderness prompting evaluation in the ED. She denied any open wounds, purulent drainage, abdominal pain, chest pain, shortness of breath. She is primarily pumping status post her recent episode of mastitis. She did attempt a nursing session the day prior to admission. She denies any other rashes or wounds. In the ED, she is febrile with a Tmax of 38.3. Tachycardic with heart rates of [id number]. Labs: WBC 14.10, BUN 18, creatinine 0.62, procalcitonin 0.34. Urinalysis without pyuria. Blood cultures grew Streptococcus dysgalactiae in 2/4 bottles. She was initially on Zosyn and vancomycin. She is now receiving ceftriaxone. ID consulted for Streptococcus bacteremia. Leukocytosis resolved and she has been afebrile for 24 hours. Microbiology: 05/28 Streptococcus dysgalactiae in 2/4 bottles Antibiotics Piperacillintazobactam 05/27 Vancomycin 05/28 Ceftriaxone 05/28current # Streptococcus dysgalactiae bacteremia # Recurrent mastitis # sepsis, resolved # cefaclor allergy - rash - She is tolerating Ceftriaxone Discussion: She presents with acute onset of right greater than left breast pain , warmth, erythema consistent with of recurrent mastitis. Blood cultures growing Streptococcus dysgalactiae. Source of bacteremia is likely skin and soft tissue infection. She denies any other areas of rash, skin breakdown, cellulitis, wounds. She denies any prosthetics or hardware. Erythema and pain has improving on antibiotics. Leukocytosis and fevers resolved. She is currently on ceftriaxone and tolerating. She has a rash with cefaclor which is a first generation cephalosporin. Recommendations: Repeat blood cultures ordered for today to establish blood culture clearance Continue ceftriaxone 2 g IV daily Check transthoracic echocardiogram in the setting of Streptococcus bacteremia If repeat blood cultures remain sterile, and no evidence of endocarditis, then plan to treat for 2 weeks from established sterile Bcx ( ? 05/30-06/12) and can transition to oral stepdown therapy with: Cefpodoxime 400 mg po q12hrs to complete therapy. She is tolerating a 3rd generation IV cephalosporin, so should tolerate cefpodoxime. Advise to avoid OTC acid suppressive meds while on cefpodoxime. Communicated recommendations to hospitalist. Thank you for this consult. ID will sign off. Harper Tai MD, MPH Infectious Disease [facility], [facility] Call [phone] with questions Consultation Information Consultation was provided via telemedicine using two-way real-time interactive telecommunication between the patient and the telemedicine provider. For the duration of the visit, the provider was performing the assessment from a different facility than the patient. This includesuse of bluetooth stethoscope forauscultationperformed by the telepresenter that the telemedicine provider can hear if described in the physical exam. Digital Printer Operator contact information: Please call [facility] Center . (Phone Number For Physician Use Only) After establishing a telemedicine visit, patient was: Patient was verified with two unique identifiers and Gave permission to continue telehealth session Time Spent with Patient: Initial => 75 min History of Present Illness Reason for Consultation: bacteremia Requesting Physician: Juan Summers MD Attending Physician: Juan Summers MD History of Present Illness This is a 34-year-old female status post vaginal delivery 04/23/2025. Her post course was complicated by bilateral mastitis (04/28/2025)with fever. She was treated with a 10-day course of dicloxacillin with improvement. She presents to the ED on 05/28/2025 with acute onset of bilateral breast erythema, warmth and pain. This was associated with nausea, vomiting and a fever with Tmax of 100.3. She took acetaminophen and ibuprofen but continued to have significant pain with chills and bilateral breast tenderness prompting evaluation in the ED. She denied any open wounds, purulent drainage, abdominal pain, chest pain, shortness of breath. She is primarily pumping status post her recent episode of mastitis. She did attempt a nursing session the day prior to admission. She denies any other rashes or wounds. In the ED, she is febrile with a Tmax of 38.3. Tachycardic with heart rates of [id number]. Labs: WBC 14.10, BUN 18, creatinine 0.62, procalcitonin 0.34. Urinalysis without pyuria. Blood cultures grew Streptococcus dysgalactiae in 2/4 bottles. She was initially on Zosyn and vancomycin. She is now receiving ceftriaxone. ID consulted for Streptococcus bacteremia. Leukocytosis resolved and she has been afebrile for 24 hours Allergies Allergy/AdvReac Type Severity Reaction Status Date / Time cefaclor Allergy Severe RASH Verified 04/28/25 14:46 tramadol Allergy Intermediate DELIRIUM Verified 04/28/25 14:46 trazodone Allergy Intermediate DELIRIUM Verified 04/28/25 14:46 nickel Allergy Mild red, itchy Verified 04/28/25 14:46 with cheap earrings apple Allergy Swelling Verified 04/28/25 14:46 of Lip/Tongue/Throat thompson Allergy Swelling Verified 04/28/25 14:46 of Lip/Tongue/Throat peach Allergy Swelling Verified 04/28/25 14:46 of Lip/Tongue/Throat Home Medications Medication Instructions Recorded Confirmed Type azelastine 137 mcg (0.1 %) nasal 2 spray intranasal BID PRN nasal 03/28/24 04/28/25 Rx spray congestion #30 mL fluticasone propionate 50 2 spray intranasal DAILY #16 grams 03/28/24 04/28/25 Rx mcg/actuation nasal spray,suspension ipratropium bromide 21 mcg (0.03 2 spray intranasal TID PRN 03/28/24 04/28/25 Rx %) nasal spray postnasal drip #30 mL sertraline 50 mg tablet 50 mg PO DAILY 03/28/24 04/28/25 History PNV no.[id number] 1 tab PO DAILY 10/09/24 04/28/25 History [ Gummies] ferrous sulfate 325 mg (65 mg 325 mg PO DAILY 03/04/25 04/28/25 History iron) tablet (Feosol) Patient History Medical History Encounter for induction of labor Varicella vaccination Anxiety Acne Chronic rhinitis Oral allergy syndrome Food allergy fresh peaches, apples, pitted fruit Classic migraine with aura Anxiety associated with depression Adrenal nodule Under surveillance by endo, non-functioning adrenal incidentaloma- plan for repeat CT 1 year Thyroid nodule Complex ovarian cyst Incomplete August 2023 [id number] condition Ruptured lumbar disc Migraine Surgical History History of colonoscopy History of esophagogastroduodenoscopy (EGD) History of wisdom tooth extraction History of placement of ear tubes Status post epidural steroid injection hip and spine History of tonsillectomy Family History Grandmother Diabetes Transplanted liver Mother Michelle thyroiditis, fibrous variant Drug abuse Anxiety Depression Thyroid disease History of PCOS Grandfather Alcohol abuse Hypertension Grandfather Drug abuse Alcohol abuse Father Drug abuse Alcohol abuse Anxiety Unknown Leukemia Sister Drug abuse Aunt Drug abuse Grandfather (Maternal) Myocardial infarction Grandfather (Paternal) Myocardial infarction Other No family history of adverse response to anesthesia Denies family history of Ovarian cancer Prostate cancer Breast cancer Colorectal cancer Uterine cancer Social History Smoking Status: Former smoker Tobacco Type: Cigarettes Second Hand Exposure: No; Do You Dip or Chew Tobacco: No; Hx Alcohol Use: No Hx Substance Use: No Preferred Language: Cameroonian Communication Ability: Effective Visual Impairment: No Limitations Hearing Ability: Normal Hvac Engineer Required: No Beliefs That Will Affect Care: None marital status: Single marital status details: bg Cantu [phone] Current Living Situation: Family Current Living Situation Comment: Lives with Fob and child, cats-fob changing litter current occupational status: employed current occupation: [employer] Feels Safe at Home: Yes Safety Concerns: Feels Safe At This Time Childhood Exposure to Second-Hand Smoke: Yes Dental Care, Regularly: Yes Physical Activity Frequency: 1-2 Times per Week Seatbelt Use: always Sunscreen Use: Yes Assistive Devices: Glasses Review of System A 10 point review of systems obtained. Pertinent positives as per HPI. Physical Exam Physical Exam: Gen- NAD Neck- Supple HEENT- Anicteric sclera, EOMI, fair dentition Lung- Non labored, On RA Breast- BL mastitis R>L Erythema, warmth and and tenderness. No open wound or drainage. No fluctuance or induration. Abdomen- soft, NT, NT Ext- No Edema Neuro- AAO times 3 Psych- Cooperative, Normal mood Results & Data Vital Signs (Past 12 Hours) Vital Signs Temp Pulse Pulse Resp BP Pulse Ox O2 Del Method 05/30/25 07:36 36.7 C 83 18 113/77 96 Room Air 05/30/25 07:14 84 05/30/25 04:04 36.6 C 85 18 98/58 L 98 Room Air 05/29/25 23:09 37.0 C 102 H 18 111/71 96 Room Air 05/29/25 21:51 102 H Laboratory Results Laboratory Results - last 48 hr 05/28/25 05/29/25 05/29/25 05:40 08:34 13:13 WBC 13.15 H RBC 3.75 L Hgb 11.1 L Hct 33.5 L MCV 89.3 MCH 29.6 MCHC 33.1 RDW Std Deviation 41.0 RDW Coeff of José Miguel 12.5 Plt Count 181 MPV 8.8 L Immature Gran % (Auto) 0.6 Neut % (Auto) 86.4 Lymph % (Auto) 9.0 [place] % (Auto) 3.0 Eos % (Auto) 0.7 Baso % (Auto) 0.3 Neut # (Auto) 11.36 H Lymph # (Auto) 1.18 L [place] # (Auto) 0.40 Eos # (Auto) 0.09 Baso # (Auto) 0.04 Immature Gran # (Auto) 0.08 Sodium 137 Potassium 3.3 L Chloride 108 H Carbon Dioxide 23 Anion Gap 6 BUN 11 Creatinine 0.62 Est Cr Clr Drug Dosing 126.3 eGFR 119.77 BUN/Creatinine Ratio 17.7 Glucose 78 Calcium 8.6 Magnesium 1.9 Random Vancomycin 8.1 L Streptococcus sp PCR DETECTED A Bld Cult ID Panel PCR See PCR Comment 05/30/25 05:35 WBC 10.25 RBC 3.78 L Hgb 11.7 L Hct 33.5 L MCV 88.6 MCH 31.0 MCHC 34.9 RDW Std Deviation 40.0 RDW Coeff of José Miguel 12.3 Plt Count 193 MPV 9.1 L Immature Gran % (Auto) 0.5 Neut % (Auto) 68.2 Lymph % (Auto) 18.0 [place] % (Auto) 7.5 Eos % (Auto) 5.5 Baso % (Auto) 0.3 Neut # (Auto) 7.00 H Lymph # (Auto) 1.84 [place] # (Auto) 0.77 H Eos # (Auto) 0.56 H Baso # (Auto) 0.03 Immature Gran # (Auto) 0.05 Sodium 140 Potassium 4.2 D Chloride 109 H Carbon Dioxide 24 Anion Gap 7 BUN 10 Creatinine 0.60 Est Cr Clr Drug Dosing 130.6 eGFR 120.72 BUN/Creatinine Ratio 16.7 Glucose 88 Calcium 8.9 Magnesium 1.9 Random Vancomycin Streptococcus sp PCR Bld Cult ID Panel PCR Microbiology 05/28/25 05:40 Blood Aerobic Blood Culture - Preliminary Streptococcus dysgalactiae 05/28/25 05:40 Blood Anaerobic Blood Culture - Preliminary No growth in Anaerobic bottle after 48 hours. 05/28/25 05:40 Blood Aerobic Blood Culture - Preliminary No growth in Aerobic bottle after 48 hours. 05/28/25 05:40 Blood Anaerobic Blood Culture - Preliminary Streptococcus dysgalactiae Medications Administered Home Medications Medication Instructions Recorded Confirmed Last Taken azelastine 137 mcg (0.1 %) nasal 2 spray intranasal BID PRN nasal 03/28/24 04/28/25 Unknown spray congestion #30 mL fluticasone propionate 50 2 spray intranasal DAILY #16 grams 03/28/24 04/28/25 Unknown mcg/actuation nasal spray,suspension ipratropium bromide 21 mcg (0.03 2 spray intranasal TID PRN 03/28/24 04/28/25 Unknown %) nasal spray postnasal drip #30 mL sertraline 50 mg tablet 50 mg PO DAILY 03/28/24 04/28/25 04/22/25 PNV no.[id number] 1 tab PO DAILY 10/09/24 04/28/25 04/22/25 [ Gummies] ferrous sulfate 325 mg (65 mg 325 mg PO DAILY 03/04/25 04/28/25 Unknown iron) tablet (Feosol) Active Medications Generic Name Dose Route Start Last Admin Trade Name Freq PRN Reason Stop Dose Admin Acetaminophen 1,000 mg 05/28/25 13:35 05/29/25 07:58 Acetaminophen 500 Mg Tab PO 06/27/25 13:34 1,000 mg Q8 PRN Administration Pain or Fever Docusate Sodium 100 mg 05/28/25 14:15 05/30/25 09:27 Docusate Sodium 100 Mg Cap PO 06/27/25 14:14 100 mg DAILY NEREIDA Administration Ceftriaxone Sodium 2,000 mg in 50 mls @ 100 mls/hr 05/28/25 13:35 05/29/25 14:06 Rocephin IV 06/04/25 13:34 Infused Q24H NEREIDA Infusion Ibuprofen 600 mg 05/28/25 14:01 05/30/25 09:25 Ibuprofen 600 Mg Tab PO 06/27/25 16:59 600 mg QID PRN Administration pain or fever Prenat Multivit/[place]/Iron/Folic Ac 1 tab 05/28/25 14:15 05/30/25 09:25 Vitamin 1 Tab PO 06/27/25 14:14 1 tab QAM NEREIDA Administration Sertraline HCl 50 mg 05/29/25 09:00 05/30/25 09:25 Sertraline Hcl 50 Mg Tablet PO 06/28/25 08:59 50 mg QAM NEREIDA Administration
--- NOTE | 2025-05-30 10:46 | Hospitalist Progress Note ---
Date of Service May 30, 2025 Assessment & Plan (1) Mastitis: (2) Anxiety: (3) Sepsis: (4) Streptococcal bacteremia: Plan 34F with a PMHx of on 04/23/2025 and anxiety who presents with concerns for recurrent mastitis. completed course of dicloxacillin about 5 weeks ago, we presented as stated symptoms started 05/28 at 2 AM. #Mastitis / Sepsis / Strep Bacteremia - hypotensive and tachycardic in the ER, received 2 L NSS. Lactate 2.3 that has normalized with fluids. Mild leukocytosis at 14. Consult AP PROCESSOR - appreciate management along with service delivery consultant Blood cultures - strep dysgalactiae - continue ceftriaxone, ID consulted, appreciate assistance in management Obtain breast US to exclude underlying abscess given recurrence ~7 days of completing the dicloxacillin Obtain TTE to exclude concerns for vegetation given gram positive bacteremia Repeat Blood Cx ordered/pending - if negative, can consider transitioning to oral abx #mental health - continue Zoloft VTE Prophylaxis - encourage ambulation Dispo: tx to med/surg Admission and Anticipated Discharge Date Admission Date: May 29, 2025 Supervising Physician Co-Signing Physician Notes I verified all nugent points and agree with Donita Back PA-C with the following exceptions and/or additions: None Subjective Patient was seen today on rounds. She was hospitalized with recurrent bilateral mastitis. She was empirically started on ceftriaxone and vancomycin. Blood Cx positive for streptococcus, vancomycin discontinued and she remains on ceftriaxone monotherapy. She was seen by ID this AM, repeat blood cx ordered and recommended echo to look for vegetation. Patient does not feel marked improvement in breast redness. She is afebrile and otherwise hemodynamically stable. She is tearful as she wants to get home to her as soon as possible. She is pumping regularly and storing breast milk. Review of Systems 2 Review of Systems: All systems reviewed and are unremarkable except as noted in HPI and below. Denies fever, chills, fatigue, headache, nasal congestion, sore throat, cough, chest pain, shortness of breath, palpitations, orthopnea, PND, abdominal pain, n/v/d, constipation, dysuria, hematuria, frequency, back pain, joint pain or swelling, easy bruising or bleeding, skin lesions or rashes. Physical Exam 2 Physical Exam: GENERAL: 34 yo Well-developed, well-nourished WF. No distress. LUNGS: Clear to auscultation bilaterally. No accessory muscle use. No W/R/R. CARDIOVASCULAR: Regular rate and rhythm. No M/G/R. No JVD. BREASTS: Bilateral breasts with erythema and tenderness. No fluctuant masses appreciated. No active purulent drainage from nipple. Results & Data Results & Data Vital Signs (Past 12 Hours) Vital Signs Temp Pulse Pulse Resp BP Pulse Ox O2 Del Method 05/30/25 07:36 36.7 C 83 18 113/77 96 Room Air 05/30/25 07:14 84 05/30/25 04:04 36.6 C 85 18 98/58 L 98 Room Air 05/29/25 23:09 37.0 C 102 H 18 111/71 96 Room Air Laboratory Results 05/30/25 05:35 05/30/25 05:35 PG Care Time/CCT Total # of Minutes Spent Total Time Spent with Patient: Total time spent is greater than 50% in coordination of care (as documented) at patient's floor/unit and/or counseling patient: 36 minutes Coding Level of Care Code 30593 SUB INP/OBS CARE 2/35MIN Diagnoses Mastitis N61.0 Anxiety F41.9 Sepsis A41.9 Streptococcal bacteremia R78.81; B95.5
[2025-05-31 04:01] VITALS: O2SAT 97
--- NOTE | 2025-05-31 07:53 | Gynecologic Progress Note ---
Date of Service May 31, 2025 Assessment & Plan (1) Mastitis: Plan: Ultrasound was ordered for yesterday morning but I do not see a radiological read on it at this stage Dr. White had assessed the patient and felt the abscess was unlikely but would need those results pending radiologist reading of the imaging patient is clearly frustrated that she would like to be home with her baby and this is understandable she actually is requesting to start on estrogen containing control as she wishes to stop breast-feeding and wishes to decrease her breastmilk production I think this is reasonable she has no history of blood clots we can initiate this on discharge is waiting for the imaging to rule out abscess as this will require surgery would not want to start an estrogen containing control pill prior to any procedure. Spent considerable time with the patient discussing her situation and how she did become septic with this how it is an unusual case and certainly frustrating for her tried to reassure and comfort the best can and will sign out to Dr. Fuentes with current plan and condition Total [id number] time with the patient today is 35 min Admission and Anticipated Discharge Date Admission Date: May 29, 2025 Subjective Patient continues to receive IV antibiotics medical team ordered an ultrasound to rule out abscess or process yesterday and patient was held n.p.o. 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 Physical Exam Constitutional: WD/WN, vitals as above well developed and well nourished Respiratory: normal respiratory effort, lungs clear to auscultation normal respiratory effort Cardiovascular: RRR, no murmur, no edema Gastrointestinal (Abdomen): normal bowel sounds, soft, nontender, no hepatosplenomegaly Results & Data Vital Signs (Past 12 Hours) Vital Signs Temp Pulse Pulse Resp BP Pulse Ox O2 Del Method 05/31/25 07:09 71 05/31/25 04:01 98.1 F 72 16 128/89 97 Room Air 05/30/25 22:29 97.7 F 67 18 157/70 H 97 Room Air 05/30/25 21:54 70 PG Care Time/CCT Total # of Minutes Spent Total Time Spent with Patient: Total time spent is greater than 50% in coordination of care (as documented) at patient's floor/unit and/or counseling patient: Coding Level of Care Code 18539 SUB INP/OBS CARE 2/35MIN Diagnoses Mastitis N61.0
[2025-05-31 08:21] LABS: Hematocrit (blood only) 37.0 % (37.0-47.0); Hemoglobin 12.2 g/dl (12.0-16.0); Immature Granulocytes # (auto) 0.02 K/uL (0.01-0.20); Immature Granulocytes % (auto) 0.3 %; Mean Corpuscular Hemoglobin 29.3 pg (25.0-34.0); Mean Corpuscular Volume 88.9 fL (80.0-100.0); Platelet Count 239 K/uL (130-400); RDW Standard Deviation 39.9 fL (36.4-46.3); Red Blood Count 4.16 M/uL (4.20-5.40); White Blood Count 6.57 K/ul (4.8-10.8)
[2025-05-31 08:40] LABS: Anion Gap 6.0 (3-11); Blood Urea Nitrogen 10.0 mg/dl (6-23); Calcium 9.6 mg/dl (8.6-10.3); Carbon Dioxide 29.0 mmol/L (21-32); Chloride 106.0 mmol/L (98-107); Creatinine Clr Calc Pharmacy 144.6 ml/min; Glucose 86.0 mg/dl (70-99(Fasting)); Potassium 4.2 mmol/L (3.5-5.1); Sodium 141.0 mmol/L (136-145)
--- NOTE | 2025-05-31 09:03 | Ultrasound Report ---
ULTRASOUND BILATERAL BREASTS CLINICAL HISTORY: Recurrent mastitis. COMPARISON STUDY: No relevant priors. FINDINGS: Real-time grayscale and color-flow sonography of both breasts is performed to assess for ab scess. The breast tissue appears edematous bilaterally. No organized fluid collection is seen in eith er breast to suggest abscess. The breast tissue appears hyperemic on color imaging. IMPRESSION: 1. The breast tissue appears edematous and hyperemic bilaterally, likely related to the reported hist ory of mastitis. 2. There is no organized fluid collection seen in either breast to indicate abscess. 3. Note that this does not constitute a cancer screening examination. Electronically signed by: Ignacio Srinivasan M.D. 05/31/2025 9:01 AM
--- NOTE | 2025-05-31 11:36 | XCELERA ---
[id number]
[2025-05-31 11:52] VITALS: RESP 18; TEMP 97.7
[2025-05-31] MEDS: cefTRIAXone SODIUM 2,000 MG/50 ML BAG IV SCH (13:12)
--- NOTE | 2025-05-31 15:34 | Communication Note ---
Date of Service: May 31, [address] Summers regarding possible starting ocp. Called in to speak to pt. Patient is planning to wean nursing. Apparently no abscess on u/s per pt. She has plan to space out her pumping by 1hr each time--she discussed with biztalk consultant how to do so. I discussed tight fitting bras and binding in between. She was told about ocps to try to help decrease milk supply, i mentioned that can be the case but not always in fact not really a high percentage once milk supply established and so really up to her. If she was planning this for control would make sense for that as well. She states she is not, plans tubal and seeing Dr. Alba for her pp on mon and wants to move ahead with tubal. She may see how binding and weaning go until then and may request ocp when she sees donna but did discuss se and risks and apparently she has h/o HAs and so in past has not used ocp for that reason and so if she can avoid she wants to try to. I notified Dr. Summers that this is pt's current plan.
[2025-05-31 15:35] VITALS: BP 110/72; PULSE 75
--- NOTE | 2025-06-01 07:52 | Discharge Summary ---
Discharge Summary Date of Service May 31, 2025 Principal Dx & Hospital Course #1 = Principal Diagnosis (1) Mastitis: (2) Anxiety: (3) Sepsis: (4) Streptococcal bacteremia: (5) Atrial septal aneurysm: Plan Alfreda Menendez is a 34 year old female admitted to [facility] from May 28 - 2024 due to sepsis with bilateral mastitis. Blood cultures grew streptococcus dysgalactiae. She was treated with intravenous ceftriaxone and seen by consulted. Repeat blood cultures are currently negative at 24 hours and mastitis is improving. On discussion with infectious disease she will now be transitioned to amoxicillin to complete a further 12 day course. Incidentally she was noted to have an atrial septal aneurysm on echocardiogram with positive bubble study consistent with intracardiac shunt. This was discussed with the patient and decided against aspirin at this time although if she goes on the COCP I would recommend this. Notes For Next Care Provider Follow up PCP for labs in 1 week to monitor renal function while on amoxicillin Follow up [facility] for ongoing management of mastitis Follow up cardiology for atrial septal aneurysm Medication Changes From Visit Amoxicillin for bilateral mastitis Admission HPI Per Admitting Provider Alfreda is a 34F with a PMHx of on 04/23/2025, and anxiety who presents with concerns for recurrent mastitis. Had mastitis 5 days PP and treated with oral dicloxacillin. Reports this episode, symptoms significantly improved in about 24 hours and completely resolved since. With current episodes of mastitis, symptoms started around 2am on 05/28, with pain, erythema and warmth. Also reports that she vomited once this morning and overall is feeling worse than when she had mastitis the first time. Initially plan was to discharge home on Bactrim, but remained tachycardic and hypotensive and decision made for admission. She did not take her medications this morning, overall has been eating well but just did not eat since she has vomited this morning. She wishes to be a full code. Discharge Exam Respiratory normal respiratory effort, lungs clear to auscultation Cardiovascular Rate/Rhythm: regular rhythm and + tachycardic Chest (Breasts) Breast: + abnormal inspection of breast (bilateral erythema improving originating from nipple, no fluctuant area) Discharge Plan Discharge Items Patient Disposition: Home - Self-Care Reason For Visit: RECURRENT MASTITIS Discharge Diagnosis: Mastitis Streptococcus bacteremia Condition on Discharge: Good Activity: Resume your previous activity Non-emergency contact: Primary Care Provider Call non-emergency contact if: you have any medication questions and your symptoms worsen Follow-up/Referrals: Bob Cisneros MD [Physician] - (Follow up intracardiac shunt) Terrie Baker MD [Primary Care Provider] - 06/09/25 1:30 pm (Follow up CBC, BMP, CRP in 1 week to monitor for infection and assess for AIN due to amoxicillin) Tana Carty DO [Physician] - (Follow up bilateral mastitis/sepsis as previously arranged) Diet: Regular Addtl Attending Provider Instructions: You were admitted to [facility] from May 28 - 2024 due to sepsis with bilateral mastitis. Blood cultures grew streptococcus dy sgalactiae. You were treated with intravenous ceftriaxone. Repeat blood cultures are currently negative at 24 hours and mastitis is improving. You will now be transitioned to amoxicillin to complete further 12 day course. Please follow up with your primary care provider for labs in 1 week to monitor for side effects of amoxicillin. Pending Studies at Discharge: Yes (Full blood culture results) Stand-Alone Forms: [facility], Smoking Cessation Medications and DC Order Prescriptions: New amoxicillin 500 mg tablet 1,000 mg PO TID 12 Days Qty: 72 0RF Continued ipratropium bromide 21 mcg (0.03 %) spray,non-aerosol 2 spray intranasal TID PRN (Reason: postnasal drip) Qty: 30 11RF Rx Instructions: administer into each nostril azelastine 137 mcg (0.1 %) spray,non-aerosol 2 spray intranasal BID PRN (Reason: nasal congestion) Qty: 30 11RF Rx Instructions: administer into each nostril fluticasone propionate 50 mcg/actuation spray,suspension 2 spray intranasal DAILY Qty: 16 11RF Rx Instructions: administer into each nostril ferrous sulfate [Feosol] 325 mg (65 mg iron) tablet 325 mg PO DAILY sertraline 50 mg tablet 50 mg PO DAILY PNV [id number] [ Gummies] 1 tab PO DAILY Discharge Orders: Discharge Order (Routine); Ordered 05/31/25 Ordered By: Juan Nolen/Other Patient Handouts: Amoxicillin Oral Tablet, ED Mastitis Admission Data Admit Date/Time: 05/29/25 22:05 Attending Provider: Juan Summers Admit Provider: Juan Summers Primary Care Provider: Terrie Baker V. Other Providers: Krystyna Quesada; Juan Summers Other Interventions: Discharge Summary Assessment (RN) Last Done: 05/31/25 15:34 Hospital Stay Data Consultations 05/28/25 10:38 ED Decision to Admit Stat 05/28/25 11:23 Consult Gynecology Routine 05/29/25 11:24 Consult Infectious Diseases Routine Diagnostic Imagining Performed 05/30/25 10:38 US breast BI complete Routine IMPRESSION: 1. The breast tissue appears edematous and hyperemic bilaterally, likely related to the reported history of mastitis. 2. There is no organized fluid collection seen in either breast to indicate abscess. 3. Note that this does not constitute a cancer screening examination. Pending Results Patient Have Any Pending Studies at Discharge: Yes (Full blood culture results) Discharge Instructions Given to Patient (Per Discharging Provider) You were admitted to [facility] from May 28 - 2024 due to sepsis with bilateral mastitis. Blood cultures grew streptococcus dysgalactiae. You were treated with intravenous ceftriaxone. Repeat blood cultures are currently negative at 24 hours and mastitis is improving. You will now be transitioned to amoxicillin to complete further 12 day course. Please follow up with your primary care provider for labs in 1 week to monitor for side effects of amoxicillin. Total Time Total Time Spent Total Time Spent (In Minutes): 40 Coding Level of Care Code 62373 INP/OBS DISCH >30 MIN Diagnoses Mastitis N61.0 Anxiety F41.9 Sepsis A41.9 Streptococcal bacteremia R78.81; B95.5 Atrial septal aneurysm I25.3
--- NOTE | 2025-06-02 06:07 | Electrocardiogram Report ---
Test Reason : Blood Pressure : */* mmHG Vent. Rate : 103 BPM Atrial Rate : 103 BPM P-R Int : 174 ms QRS Dur : 88 ms QT Int : 336 ms P-R-T Axes : 70 24 50 degrees QTcB Int : 440 ms Sinus tachycardia Otherwise normal ECG No previous ECGs available Confirmed by Bob Cisneros ([id number]) on 06/02/2025 6:07:08 AM Referred By: REFERRED SELF Confirmed By: Bob Cisneros
== END 2025-05-31 16:36 | disposition home or self-care (01) | DRG 872 ==
LOC: 2N 05:15 → ED 05:15 → 2N 12:37